=== PATIENT | female | born 1975 | race Caucasian/White ===

== ENCOUNTER 2022-11-02 14:37 | Outpatient (OUT) | payer OTHER, SELFPAY ==
--- NOTE | 2022-11-02 15:05 | XR_ITS ---
The [address] [address] Patient Name: MARK TABARES MRN: [id number] date: 1975 Sex: F Assigned Patient Location: [facility] Current Patient Location: Accession/Order Number: [id number] Exam Date: 11/02/2022 15:15 Report Date: 11/03/2022 07:40 At the request of: CHARMAINE ADKINS Procedure: XR hip RT min 2V PROCEDURE: XR hip RT min 2V HISTORY: Right hip pain M25.551 COMPARISON: None. FINDINGS: BONES:No fracture, acute abnormality, or significant arthropathy. SOFT TISSUES:No visible soft tissue swelling. EFFUSION:None visible. OTHER: Negative. XR/XR hip RT min 2V IMPRESSION: 1. No acute bone abnormality or significant degenerative joint disease. Electronically authenticated by: AVANI GALVAN Date: 11/03/2022 07:40
== END 2022-11-02 14:38 | disposition home or self-care (01) ==
PROVIDERS: PCP Nurse Practitioner Family; Visit Provider Nurse Practitioner Family
DX: M25.551 Pain in right hip (principal)
CPT/HCPCS: 73502

== ENCOUNTER 2022-11-03 08:50 | Outpatient (OUT) | payer OTHER, SELFPAY ==
[2022-11-03 09:04] LABS: Basophils Absolute Auto 0.1 10^3/uL (0.0-0.1); Basophils Percent Auto 0.7 % (0.2-2.0); Eosinophils Absolute Auto 0.2 10^3/uL (0.0-0.7); Eosinophils Percent Auto 1.9 % (0.9-7.0); Hematocrit 43.7 % (36.0-48.0); Hemoglobin 14.9 g/dL (12.0-16.0); Immature Granulocytes Abs Auto 0.05 10^3/uL (0.00-0.03); Immature Granulocytes Pct Auto 0.5 % (0.0-0.5); Lymphocytes Absolute Auto 2.7 10^3/uL (1.2-3.8); Lymphocytes Percent Auto 27.8 % (20.5-60.0); Mean Corpuscular HGB Conc 34.1 g/dL (29.9-35.2); Mean Corpuscular Volume 87.9 fL (81.0-99.0); Mean Platelet Volume 9.2 fL (9.5-13.5); Monocytes Absolute Auto 0.7 10^3/uL (0.3-0.8); Monocytes Percent Auto 6.7 % (1.7-12.0); Neutrophils Percent Auto 62.4 % (43.0-75.0); Platelet Count 249 10^3/uL (150-450); Red Blood Count 4.97 10^6/uL (4.20-5.40); Red Cell Distribution Width 13.7 % (11.0-15.0); White Blood Count 9.7 10^3/uL (4.0-11.0)
[2022-11-03 09:15] LABS: Estimated Average Glucose 120 mg/dL; Glycohemoglobin A1C 5.8 % (4.5-6.2)
[2022-11-03 10:16] LABS: Alanine Aminotransferase 25 U/L (14-59); Albumin Globulin Ratio 0.9; Albumin Level 3.7 g/dL (3.4-5.0); Alkaline Phosphatase 177 U/L (46-116); Anion Gap 9.1; Aspartate Amino Transferase 13 U/L (15-37); BUN Creatinine Ratio 15.7; Bilirubin Total 0.3 mg/dL (0.2-1.0); Calcium 9.4 mg/dL (8.5-10.1); Carbon Dioxide 28.9 mmol/L (21.0-32.0); Chloride 103 mmol/L (98-107); Chol HDL Ratio 2.9; Cholesterol 200 mg/dL (<=200); Estimated GFR (African America >60 (>=60); Estimated GFR (Non-African Ame >60 (>=60); Free T3 2.77 pg/mL (2.18-3.98); Globulin 3.9 g/dL; Glucose 97 mg/dL (74-106); HDL Cholesterol 69 mg/dL (40-60); Sodium 137 mmol/L (136-145); Thyroid Stimulating Hormone 1.803 uIU/mL (0.358-3.740); Total Protein 7.6 g/dL (6.4-8.2); Triglycerides 76 mg/dL (<=150); VLDL CHOLESTEROL 15.2 mg/dL
[2022-11-04 14:10] LABS: Insulin 11.9 uIU/mL (2.6-24.9)
== END 2022-11-03 08:51 | disposition home or self-care (01) ==
LOC: LAB 08:50
PROVIDERS: PCP Nurse Practitioner Family; Visit Provider Nurse Practitioner Family
DX: Z00.00 Encounter for general adult medical examination without abnormal findings (principal)
CPT/HCPCS: 36415; 80053; 80061; 82306; 83036; 83525; 83540; 84436; 84443; 84481; 85025

== ENCOUNTER 2022-11-09 15:51 | Outpatient (RCR) | payer OTHER, SELFPAY | END 2022-12-14 15:38 | disposition home or self-care (01) | LOC: PT 15:51 | PROVIDERS: PCP Nurse Practitioner Family; Visit Provider Nurse Practitioner Family | DX: M25.551 Pain in right hip (principal) | CPT/HCPCS: 97010; 97014; 97110; 97113; 97140; 97162 ==

== ENCOUNTER 2023-03-22 12:49 | Outpatient (OUT) | payer OTHER, SELFPAY ==
--- OUTSIDE RECORDS SUMMARY | 2023-03-22 12:52 | XMS_ITS | CCD ---
Author Name Unknown Address [address] [facility] [address] [place] [address] Organization [facility] Care Team Providers Care Anti Air Warfare Operations Officer Name Role Phone MD Darvin Motley Attending Provider JACE Adkins Primary Care Provider 1( [phone] ANNMARIE ADKINS Primary Care Unavailable LUCILLE, ANNMARIE Consulting Unavailable LUCILLE, ANNMARIE Attending Unavailable LUCILLE, ANNMARIE Admitting Unavailable CHASITY, DR RODRIGUEZ Consulting Unavailable CHASITY, DR RODRIGUEZ Attending Unavailable NEHAY, DR RODRIGUEZ Admitting Unavailable LUCILLE, ANNMARIE Primary Care Unavailable RAVEN HERRON Primary Care Unavailable DEBORAH, MAXIMILIAN Admitting Unavailable CHARLIE LANDEROS Consulting Unavailable DEBORAH, MAXIMILIAN Attending Unavailable MAXIMILIAN CABRERA Consulting Unavailable WEST, DR CHERELLE Warren Admitting Unavailable LUCILLE, ANNMARIE Primary Care Unavailable WEST, DR CHERELLE Warren Consulting Unavailable YADIEL, DR CHERELLE Warren Attending Unavailable MANDY, DR LLOYD Hill Consulting Unavailable LUCILLE, ANNMARIE Primary Care Unavailable LUCILLE, ANNMARIE Attending Unavailable LUCILLE, ANNMARIE Admitting Unavailable WEST, DR CHERELLE Warren Consulting Unavailable ANNMARIE ADKINS Consulting Unavailable WEST, DR CHERELLE Warren Admitting Unavailable LUCILLE, ANNMARIE Primary Care Unavailable WEST, DR CHERELLE Warren Consulting Unavailable WEST, DR CHERELLE Warren Attending Unavailable WEST, DR CHERELLE Warren Admitting Unavailable LUCILLE, ANNMARIE Primary Care Unavailable WEST, DR CHERELLE Warren Consulting Unavailable YADIEL, DR CHERELLE Warren Attending Unavailable LUCILLE, ANNMARIE Primary Care Unavailable WEST, DR CHERELLE Warren Consulting Unavailable WEST, DR CHERELLE Warren Attending Unavailable WEST, DR CHERELLE Warren Admitting Unavailable LUCILLE, ANNMARIE Primary Care Unavailable WEST, DR CHERELLE Warren Attending Unavailable WEST, DR CHERELLE Warren Consulting Unavailable YADIEL, DR CHERELLE Warren Admitting Unavailable LUCILLE, ANNMARIE Attending Unavailable LUCILLE, ANNMARIE Admitting Unavailable LUCILLE, ANNMARIE Primary Care Unavailable ZIDR LLOYD FERGUSON Consulting Unavailable ANNMARIE ADKINS Consulting Unavailable RAVEN HERRON Primary Care Unavailable RAVEN HERRON Attending Unavailable RAVEN HERRON Admitting Unavailable DR CHERELLE COTTO V Consulting Unavailable RAVEN HERRON Consulting Unavailable ANNMARIE ADKINS Primary Care Unavailable ANNMARIE ADKINS Consulting Unavailable ANNMARIE ADKINS Attending Unavailable ANNMARIE ADKINS Admitting Unavailable Darvin Motley Attending Unavailable Annmarie Adkins Primary Care Unavailable Darvin Motley Admitting Unavailable Darvin Motley Attending Unavailable Annmarie Adkins Primary Care Unavailable Darvin Motley Admitting Unavailable Allergies Allergy Classification Reported Allergen(s) Allergy Type Date of Onset Reaction(s) Facility (2 sources) Shellfish; Translations: [shellfish derived] Allergy to substance 12-20-2021 [facility] Medications Current Medications Medication Drug Class(es) Dates Sig (Normalized) Sig (Original) 24 hr buPROPion hydrochloride 150 mg extended release oral tablet (1 source) Aminoketone Start: 12-20-2021 take 150 mg by mouth once daily Bupropion Hcl Active 150 MG PO Daily December 20, 2021 12:00am naproxen 500 mg oral tablet (1 source) Nonsteroidal Anti-inflammatory Drug Start: 12-20-2021 take 500 mg by mouth twice daily Naproxen Active 500 MG PO Twice daily December 20, 2021 12:00am omeprazole 40 mg delayed release oral capsule (1 source) Proton Pump Inhibitor Start: 12-20-2021 take 40 mg by mouth once daily Omeprazole Active 40 MG PO Daily December 20, 2021 12:00am tiZANidine 4 mg oral tablet (1 source) Central alpha-2 Adrenergic Agonist Start: 12-20-2021 take 4 mg by mouth twice daily Tizanidine Active 4 MG PO Twice daily December 20, 2021 12:00am Problems Active Problems Problem Classification Problem Date Documented Da te Episodic/Chronic Abdominal pain (1 source) Unspecified abdominal pain; Translations: [UNSPECIFIED ABDOMINAL PAIN] Onset: 2 Episodic Deficiency and other anemia (1 source) Anemia, unspecified; Translations: [ANEMIA UNSPECIFIED] Onset: 2 Episodic Diabetes mellitus without complication (1 source) Other abnormal glucose; Translations: [OTHER ABNORMAL GLUCOSE] Onset: 2 Episodic Diseases of white blood cells (4 sources) Elevated white blood cell count, unspecified; Translations: [ELEVATED WHITE BLOOD CELL COUNT UNS] Onset: 2 Chronic Esophageal disorders (1 source) Esophageal disorders; Translations: [Gastro-esophageal reflux disease without esophagitis] Onset: 2 Other connective tissue disease (4 sources) Other specified soft tissue disorders; Translations: [OTHER SPEC SOFT TISSUE DISORDERS] Onset: 2 Episodic Other gastrointestinal disorders (5 sources) Dysphagia, unspecified; Translations: [DYSPHAGIA UNSPECIFIED] Onset: 2 Episodic Phlebitis; thrombophlebitis and thromboembolism (8 sources) Phlebitis and thrombophlebitis of superficial vessels of right lower extremity; Translations: [Phlebitis and thrombophlebitis of superficial vessels of left lower extremity] Onset: 2 Episodic Residual codes; unclassified (3 sources) Localized edema; Translations: [LOCALIZED EDEMA] Onset: 2 Episodic Unclassified (3 sources) COUGH, UNSPECIFIED; Translations: [COUGH, UNSPECIFIED] Onset: 2 Unclassified (1 source) CONTACT W/AND (SUSP) EXPOS COVID-19; Translations: [CONTACT W/AND (SUSP) EXPOS COVID-19] Onset: 1 Unclassified (1 source) Encounter for preprocedural laboratory examination; Translations: [Encounter for preprocedural laboratory examination] Onset: 2 Varicose veins of lower extremity (5 sources) Varicose veins of bilateral lower extremities with pain; Translations: [VARICOSE VNS KAMRAN LOW EXTREM W/PAIN] Onset: 2 Episodic Past or Other Problems Problem Classification Problem Date Documented Da te Episodic/Chronic Chronic obstructive pulmonary disease and bronchiectasis (1 source) Bronchitis, not specified as acute or chronic; Translations: [BRONCHITIS NOT SPEC ACUTE/CHRON] Onset: 02-24-2021 Episodic Other upper respiratory infections (1 source) Acute laryngitis; Translations: [ACUTE LARYNGITIS] Onset: 02-24-2021 Episodic Unclassified (1 source) COUGH, UNSPECIFIED; Translations: [COUGH, UNSPECIFIED] Onset: 03-09-2021 Results Test Name Value Interpretation Reference Range Facility COVID-19 [facility] [place] 12-19-2021 SARS-CoV-2 (COVID-19) RNA VITO+probe Ql (Unsp spec) Negative Normal Negative [facility] Comment on above: Order Comment: Healt hcare Worker?: N Result Comment: Testing for SARS-CoV-2 by RT-PCR This test was developed and its performance characteristics determined by [employer] and validated at the [facility]. This test has not been FDA cleared or approved. This test has been authorized by FDA under an Emergency Use Authorization (EUA). This test has been validated in accordance with the FDA's Guidance Document (Policy for Diagnostics Testing in Laboratories Certified to Perform High Complexity Testing under CLIA prior to Emergency Use Authorization for Coronavirus Disease-2019 during the Public Health Emergency) issued on May 29, 2019. This test is only authorized for the duration of time the declaration that circumstances exist justifying the authorization of the emergency use of in vitro diagnostic tests for detection of SARS-CoV-2 virus and/or diagnosis of COVID-19 infection under section 564(b)(1) of the Act, 21 U.S.C. 360bbb-3(b)(1), unless the authorization is terminated or revoked sooner. PERFORMED BY: [place] [address] PATHOLOGIST MANAGER MEDICAL AFFAIRS ZACH LAM M.D. Performed By: #### C OVID 19 [facility] [place] #### [address] COVID-19 Positive/NegativeOr dered By: Darvin Motley on 12-19-2021 SARS-CoV-2 (COVID-19) N gene VITO+probe Ql (Resp) Negative Negative [facility] Comment on above: Testing for SARS-CoV -2 by RT-PCRThis test was developed and its performance characteristics determined by [employer] and validated at the [facility]. This test has not been FDA cleared or approved. This test has been authorized by FDA under an Emergency Use Authorization (EUA). This test has been validated in accordance with the FDA's Guidance Document (Policy for Diagnostics Testing in Laboratories Certified to Perform High Complexity Testing under CLIA prior to Emergency Use Authorization for Coronavirus Disease-2019 during the Public Health Emergency) issued on May 29, 2019. This test is only authorized for the duration of time the declaration that circumstances exist justifying the authorization of the emergency use of in vitro diagnostic tests for detection of SARS-CoV-2 virus and/or diagnosis of COVID-19 infection under section 564(b)(1) of the Act, 21 U.S.C. 360bbb-3(b)(1), unless the authorization is terminated or revoked sooner. VC CONSULT FOLLOWUPon 2021 VC CONSULT FOLLOWUP Patient: KENYON TABARES Exam Date: 12/09/2021 : 1975 Gender:F Ordering : DR CHERELLE COTTO M.D. Admission #: [id number] Family : Order #: [id number] CLICK HERE TO VIEW EXAM RADIOLOGY REPORT PROCEDURE: VEIN CENTER CONSULTATION FOLLOWUP VEIN CENTER - OFFICE VISIT FOLLOW UP COMPARISON: VC CONSULT FOLLOWUP, 11/25/2021. VC CONSULT FOLLOWUP, 11/10/2021. PROGRESS NOTES: The patient reports mild discomfort following intravenous laser ablation of the right great saphenous vein. The patient did not require oral analgesics. The patient did wear her compression stocking which resulted in a rash along the medial lower leg measuring 1 cm in craniocaudal dimension. The patient has followed our recommendations to walk 20-30 minutes once or twice per day since the procedure. The patient reports significant improvement in her initial presenting symptoms. Physical exam demonstrates multiple areas of bruising along the medial right thyroid likely related to tumescence injection. Thrombosed great saphenous vein can be partially palpated. No areas of erythema or warmth to suggest cellulitis or thrombophlebitis. No active ulceration Review of the ultrasound performed the same day demonstrates occlusive thrombus extending throughout the treated right great saphenous vein. No deep vein thrombus. Heat induced thrombus is 2 cm from the saphenofemoral junction. No residual varicose veins could be observed by ultrasound, spontaneous closure following intravenous laser ablation of the great saphenous veins. No further treatments are needed at this time.. IMPRESSION: 1. Successful ablation of the right great saphenous vein 2. No significant incompetent varicose veins 3. Scattered reticular and spider veins, the patients insurance did not approve injection sclerotherapy, the patient declined self pay PLAN: No further treatments required. Follow-up as needed Nurse notes, history and physical were reviewed and confirmed, see attached forms. The nurse was present throughout the physical exam and consultation Dictated by: Cherelle Cotto MD on 12/09/2021 at 08:21 Approved by: Cherelle Cotto MD on 12/09/2021 at 08:31 Normal [facility] VC EXT VENOUS RT LIMITEDon 1 VC EXT VENOUS RT LIMITED Patient: RULA TABARES Exam Date: 12/09/2021 : 1975 Gender:F Ordering : DR CHERELLE COTTO M.D. Admission #: [id number] Family : Order #: [id number] CLICK HERE TO VIEW EXAM RADIOLOGY REPORT PROCEDURE: VEIN CENTER EXTREMITY VENOUS RIGHT LIMITED COMPARISON: None. INDICATIONS: Phlebitis of superficial veins of lower extremity I80.01 TECHNIQUE: Lower extremity angel scale and Duplex Doppler evaluation of the deep venous system from the inguinal ligament through the calf veins. FINDINGS: REGION: Right lower extremity. THROMBI: Negative for DVT. Heat induced thrombus visualized 2.0cm from the SFJ. The heat induced thrombus extends from groin to proximal calf and is patent at mid calf below the area of insertion. COMPRESSIBILITY: Non-compressible segments. FLOW: Areas of no flow. *Exam performed in accordance with AIUM practice guidelines- Peripheral venous ultrasound, May 22, 2009. CONCLUSION: Post ablation occlusion of the left great saphenous vein with heat induced thrombus 2 cm from the saphenofemoral junction Dictated by: Cherelle Cotto MD on 12/09/2021 at 08:14 Approved by: Cherelle Cotto MD on 12/09/2021 at 08:15 Normal [facility] VC ENDOVENOUS ABL 1ST V RTon 12-05-2021 VC ENDOVENOUS ABL 1ST V RT Patient: RULA TABARES Exam Date: 12/05/2021 : 1975 Gender:F Ordering : DR CHERELLE COTTO M.D. Admission #: [id number] Family : Order #: [id number] CLICK HERE TO VIEW EXAM RADIOLOGY REPORT PROCEDURE: VEIN CENTER ENDOVENOUS ABLATION FIRST VEIN RIGHT GREAT SAPHENOUS VEIN COMPARISON: None. INDICATIONS: Pain co-occurrent and due to varicose veins of bilateral legs I83.813 OPERATIVE REPORT: The risks and benefits of the procedure had been previously discussed, and were rediscussed at length. Informed written consent was obtained by and Manan vieira. Time out procedure was performed. The right lower extremity was prepared and draped in the usual sterile fashion to allow knee flexion in the sterile field. Duplex ultrasound probe was draped in a sterile cover, sterile transmission gel was used. Venous mapping was performed with the areas of dilation and large tributaries marked. The total length was 37 cm from the entry mid calf to 3 cm below the saphenofemoral junction. The diameter of the greater saphenous vein ranged from 4-9 mm. A 30 gauge needle and 1% buffered lidocaine was used to anesthetize the entry site. A 4 mm incision was made with a scalpel and the saphenous vein was entered percutaneously under direct ultrasound guidance with a micropuncture set, a single stick was successful in gaining access. A micro-guide wire was inserted and the needle removed. A micro-set including a dilator was inserted over the microwire and the needle and dilator were removed. A 0.018 guide wire was inserted through the micro-set and threaded through the saphenous vein to the saphenofemoral junction. The dilator was removed and an introducer sheath was inserted over the wire until the end of the sheath entered the saphenofemoral junction. The dilator and wire were removed and the 600 micron fiber was introduced and placed and positioned so that it extended beyond the sheath and was 3 cm peripheral to the saphenofemoral femoral junction. Final position of the fiber was determined by ultrasound guidance and duplex imaging. Tumescent anesthetic was delivered by ultrasound guidance. 200 cc of fluid was delivered along the entire course of the saphenous vein. The solution consisted of 500 cc of normal saline with 20mL of 1% lidocaine and 10 mL of sodium bicarbonate. A final positioning check was made. The energy source was turned on by means of the foot pedal and the fiber and sheath were withdrawn. The total number of Joules delivered was 1754. The laser was active for 219 seconds under continuous pulse, average laser use of 8 J. Laser start time 8:37 a.m. December 05, 2021. Laser stop time 8:41 a.m. December 05, 2021 A duplex ultrasound revealed compressibility and flow at the saphenofemoral junction immediately after the procedure. Hemostasis at the access site was achieved. The skin incision of the saphenous vein was closed with a 4 x 4. A compression stocking was applied. Postop instructions were given. A follow up appointment was recommended and scheduled. The patient tolerated the procedure well and was discharged in good condition. CONCLUSION: 1. Technically successful endovenous laser ablation of the right great saphenous vein. Dictated by: Cherelle Cotto MD on 12/05/2021 at 08:44 Approved by: Cherelle Cotto MD on 12/05/2021 at 08:45 Normal [facility] VC CONSULT FOLLOWUPon 2021 VC CONSULT FOLLOWUP Patient: KENYON TABARES Exam Date: 11/25/2021 : 1975 Gender:F Ordering : DR CHERELLE COTTO M.D. Admission #: [id number] Family : Order #: [id number] CLICK HERE TO VIEW EXAM RADIOLOGY REPORT PROCEDURE: VEIN CENTER CONSULTATION FOLLOWUP VEIN CENTER - OFFICE VISIT FOLLOW UP COMPARISON: VC CONSULT FOLLOWUP, 11/10/2021. PROGRESS NOTES: The patient returns today for micro foam chemical ablation. Ultrasound of the left leg demonstrates occlusion of the treated great saphenous vein. There has been marked reduction in size of the distal untreated left great saphenous vein as well as multiple branch saphenous tributaries now measuring only 2-3 mm in size with no significant reflux. No incompetent machine packaging technician veins were identified. Several tributaries appear to have spontaneously thrombosed. In light of this change we did not proceed with the procedure. The patient now reports significant improvement in her initial presenting symptoms following intravenous laser ablation and would like to proceed with treatment of the right leg. Physical exam demonstrates no areas of erythema or warmth. No evidence of cellulitis or thrombophlebitis. No active ulceration. No bruising. No varicose veins are observed. IMPRESSION: 1. Spontaneous thrombosis of several great saphenous vein tributaries following intravenous laser ablation. No significant incompetent varicose veins are identified for treatment on the left leg PLAN: Endovenous laser ablation right great saphenous vein Nurse notes, history and physical were reviewed and confirmed, see attached forms. The nurse was present throughout the physical exam and consultation Dictated by: Cherelle Cotto MD on 11/25/2021 at 10:40 Approved by: Cherelle Cotto MD on 11/25/2021 at 10:43 Normal [facility] ECHOCARDIO M/2D COMPLETEon 0 11-14-2021 ECHOCARDIO M/2D COMPLETE Patient: RULA TABARES Exam Date: 11/14/2021 : 1975 Gender:F Ordering : ANNMARIE ADKINS [facility] Admission #: [id number] Family : Order #: [id number] CLICK HERE TO VIEW EXAM ECHOCARDIOGRAM REPORT PROCEDURE: CARDIO PULMONARY ECHOCARDIO M/2D COMP INDICATIONS: Lower extremity edema COMPARISON: None. DESCRIPTION: COMPLETE ECHOCARDIOGRAM Real-time transthoracic echocardiography with 2D, M-mode, spectral and color flow Doppler performed. QUALITY: Technical quality was good. LEFT VENTRICLE: Normal chamber size. Mild concentric left ventricular hypertrophy. LV EF: Global left ventricular systolic function is normal; visually estimated ejection fraction is 55%. No significant wall motion abnormality seen. DIASTOLIC: Diastolic function is indeterminate. ATRIAL SEPTUM: Inadequately seen. LEFT ATRIUM: Mild dilatation. RIGHT ATRIUM: Mild dilatation. RIGHT VENTRICLE: Normal chamber size. Normal right ventricular systolic function. TRICUSPID VALVE: Normal mobility and thickness. No stenosis with trivial regurgitation. Unable to assess right-sided pressures due to lack of measurable tricuspid regurgitation. MITRAL VALVE: Normal mobility and thickness. No mitral valve prolapse. No evidence of mitral valve stenosis. There is no mitral annular calcification. Trivial mitral regurgitation. AORTIC VALVE: Normal trileaflet appearance. No visible sclerosis. Normal leaflet mobility. No evidence of aortic valve stenosis. No aortic regurgitation. AORTIC ROOT: Normal diameter and appearance. PULMONIC VALVE: Normal thickness and mobility. No stenosis. No regurgitation. PERICARDIUM: Anterior free space; trivial effusion versus fat pad. IVC: Collapses with inspirations. Normal size. CONCLUSION: Global left ventricular systolic function is normal; visually estimated ejection fraction is 55%. No significant wall motion abnormalities. Mild left ventricular hypertrophy. Diastolic function is indeterminate. Mild biatrial enlargement. Right ventricle is normal in size and systolic function. No significant valvular abnormalities. Anterior free space; trivial effusion versus fat pad. Adult Echocardiography Procedure Report Left Ventricle LVEDD (3.7 - 5.6 cm): 4.63 cm LVESD (2.2 - 4.0 cm): 3.42 cm LVIVS thickness (0.6 - 1.2 cm): 1.11 cm LVPW thickness (0.5 - 1.0 cm): 1.26 cm e': 0.12 m/s E - e': 7.02 LVOT Max Gradient: 1.93 mm[Hg], 2.39 mm[Hg] Peak Velocity (LVOT): 0.69 m/s, 0.77 m/s Mean Velocity (LVOT): 0.49 m/s, 0.51 m/s LVOT Diameter 2.42 cm Left Atrium LA Volume Index (2D A2C): 39.88 ml, 39.88 ml Left Atrium Systolic Dimension: 3.64 cm Mitral Valve MV E to A Ratio: 0.93 Mitral Valve A-Wave Peak Velocity: 0.91 m/s Mitral Valve E-Wave Peak Velocity: 0.85 m/s Right Ventricle RV Internal Diastolic Dimension: 3.28 cm Aorta AO Root Diam: 3.43 cm Ascending Ao Diam: 2.73 cm Aortic Valve AoV Area (Peak Hung): 3.33 cm2, 3.15 cm2 Peak Velocity(Antegrade Flow): 1.01 m/s Peak Gradient(Antegrade Flow): 4.12 mm[Hg] Tricuspid Valve Pulmonic Valve Mean Gradient: 1.59 mm[Hg] Mean Velocity: 0.59 m/s Peak Velocity: 0.84 m/s, 0.84 m/s Peak Gradient: 2.85 mm[Hg], 2.81 mm[Hg] Right Atrium Dictated by: Bhupendra Castro M.D. on 11/15/2021 at 16:45 Approved by: Bhupendra Castro M.D. on 11/15/2021 at 16:50 Normal [facility] VC CONSULT FOLLOWUPon 2021 VC CONSULT FOLLOWUP Patient: KENYON TABARES Exam Date: 11/10/2021 : 1975 Gender:F Ordering : DR CHERELLE COTTO M.D. Admission #: [id number] Family : Order #: [id number] CLICK HERE TO VIEW EXAM RADIOLOGY REPORT PROCEDURE: VEIN CENTER CONSULTATION FOLLOWUP VEIN CENTER - OFFICE VISIT FOLLOW UP COMPARISON: None. PROGRESS NOTES: The patient reports moderate pain of the left leg following intravenous laser ablation of the left great saphenous vein. The patient did require over the counter oral analgesics, ibuprofen. The patient did wear her compression stocking. The pain has significantly improved. The patient has followed our recommendations to walk 20-30 minutes once or twice per day since the procedure. Physical exam demonstrates an 8 cm area of bruising in the left mid thigh related to tumescence injection. No areas of erythema or warmth to suggest cellulitis or thrombophlebitis. No active ulceration. Review of the ultrasound performed the same day demonstrates occlusive thrombus extending throughout the treated left great saphenous vein with heat induced thrombus 2.3 cm from the saphenofemoral junction. No deep vein thrombus The patient expressed a desire to proceed with treatment of left leg varicose veins with micro foam chemical ablation. IMPRESSION: 1. Successful ablation of the left great saphenous vein 2. Persistent incompetent left leg varicose veins PLAN: Micro foam chemical ablation left leg Nurse notes, history and physical were reviewed and confirmed, see attached forms. The nurse was present throughout the physical exam and consultation Dictated by: Cherelle Cotto MD on 11/10/2021 at 10:55 Approved by: Cherelle Cotto MD on 11/10/2021 at 10:57 Normal [facility] VC EXT VENOUS LT LIMITEDon 0 11-10-2021 VC EXT VENOUS LT LIMITED Patient: RULA TABARES Exam Date: 11/10/2021 : 1975 Gender:F Ordering : DR CHERELLE COTTO M.D. Admission #: [id number] Family : Order #: [id number] CLICK HERE TO VIEW EXAM RADIOLOGY REPORT PROCEDURE: VEIN CENTER EXTREMITY VENOUS LEFT LIMITED COMPARISON: None. INDICATIONS: Phlebitis and thrombophlebitis of superficial veins of left lower extremity I80.02 TECHNIQUE: Lower extremity angel scale and Duplex Doppler evaluation of the deep venous system from the inguinal ligament through the calf veins. FINDINGS: REGION: Left lower extremity. THROMBI: Negative for DVT. Heat induced thrombus arising 2.3 cm from the SFJ. The heat induced thrombus extends from groin to proximal calf and is patent again at mid calf below the area of insertion COMPRESSIBILITY: Noncompressibility corresponding to thrombus FLOW: Absent flow corresponding to thrombus *Exam performed in accordance with AIUM practice guidelines- Peripheral venous ultrasound, May 22, 2009. CONCLUSION: Post ablation occlusion of the right great saphenous vein with heat induced thrombus 2.3 cm from the saphenofemoral junction Dictated by: Cherelle Cotto MD on 11/10/2021 at 10:51 Approved by: Cherelle Cotto MD on 11/10/2021 at 10:52 Normal [facility] XR MODIFIED BARIUM SWALLOWon 11-08-2021 XR MODIFIED BARIUM SWALLOW EXAMINATION: XR MODIFIED BARIUM SWALLOW HISTORY: Dysphagia ; painful swallowing, feels like things getting stuck at level of lower neck which becomes worse as the day progresses COMPARISON: No relevant comparison available. TECHNIQUE: A swallowing evaluation was performed with fluoroscopy in the usual manner. Standard level fluoroscopic mode of operation utilized. FINDINGS: ORAL PHASE: Normal deglutition. PHARYNGEAL PHASE: Normal swallowing. ASPIRATION: None. STRUCTURE: Normal. No visible obstruction, stricture, or dilatation. OTHER: Negative. IMPRESSION: 1. Normal modified barium swallowing study. 2. Consider fluoroscopic esophagram and possibly upper GI study for evaluation of gastric reflux and esophageal peristalsis and/or stricture. Electronically authenticated by: LLOYD WILLIS Date: 2021-11-08 11:46 Normal [facility] VC ENDOVENOUS ABL 1ST V LTon 11-07-2021 VC ENDOVENOUS ABL 1ST V LT Patient: RULA TABARES Exam Date: 11/07/2021 : 1975 Gender:F Ordering : DR CHERELLE COTTO M.D. Admission #: [id number] Family : Order #: [id number] CLICK HERE TO VIEW EXAM RADIOLOGY REPORT PROCEDURE: VEIN CENTER ENDOVENOUS ABLATION FIRST VEIN LEFT COMPARISON: None. INDICATIONS: Pain co-occurrent and due to varicose veins of bilateral legs I83.813 OPERATIVE REPORT: The risks and benefits of the procedure had been previously discussed, and were rediscussed at length. Informed written consent was obtained by and Manan Orellana assisted. Time out procedure was performed. The left lower extremity was prepared and draped in the usual sterile fashion to allow knee flexion in the sterile field. Duplex ultrasound probe was draped in a sterile cover, sterile transmission gel was used. Venous mapping was performed with the areas of dilation and large tributaries marked. The total length was 39 cm from the entry 10 cm below the knee to 3 cm below the saphenofemoral junction. The diameter of the greater saphenous vein ranged from 9 mm. A 30 gauge needle and 1% buffered lidocaine was used to anesthetize the entry site. A 4 mm incision was made with a scalpel and the saphenous vein was entered percutaneously under direct ultrasound guidance with a micropuncture set, a single stick was successful in gaining access. A micro-guide wire was inserted and the needle removed. A micro-set including a dilator was inserted over the microwire and the needle and dilator were removed. A 0.018 guide wire was inserted through the micro-set and threaded through the saphenous vein to the saphenofemoral junction. The dilator was removed and an introducer sheath was inserted over the wire until the end of the sheath entered the saphenofemoral junction. The dilator and wire were removed and the 600 micron fiber was introduced and placed and positioned so that it extended beyond the sheath and was 3 cm peripheral to the saphenofemoral femoral junction. Final position of the fiber was determined by ultrasound guidance and duplex imaging. Tumescent anesthetic was delivered by ultrasound guidance. Two hundred twenty-five cc of fluid was delivered along the entire course of the saphenous vein. The solution consisted of 500 cc of normal saline with 20mL of 1% lidocaine and 10 mL of sodium bicarbonate. A final positioning check was made. The energy source was turned on by means of the foot pedal and the fiber and sheath were withdrawn. The total number of Joules delivered was 2068. The laser was active for 259 seconds under continuous pulse, average laser use of 8 J. Laser start time 9:25 a.m. November 07, 2021. Laser stop time 9:29 a.m. November 07, 2021. A duplex ultrasound revealed compressibility and flow at the saphenofemoral junction immediately after the procedure. Hemostasis at the access site was achieved. The skin incision of the saphenous vein was closed with a 4 x 4. A compression stocking was applied. Postop instructions were given. A follow up appointment was recommended and scheduled. The patient tolerated the procedure well and was discharged in good condition. CONCLUSION: 1. Technically successful endovenous laser ablation of the left great saphenous vein. Dictated by: Lloyd Willis M.D. on 11/07/2021 at 09:32 Approved by: Lloyd Willis M.D. on 11/07/2021 at 09:35 [facility] AUTO DIFFon 10-05-2021 BASO # 0.1 103/ul Normal 0.0-0.1 [facility] Comment on above: Performed By: #### C BC ####[facility] [address] [place] [address]Dr. Jase Stinson Basophils/100 WBC (Bld) 0.9 % Normal 0.2-2.0 [facility] Comment on above: Performed By: #### C BC ####[facility] [address] [place] [address]Dr. Jase Milad EO # 0.2 103/ul Normal 0.0-0.7 [facility] Comment on above: Performed By: #### C BC ####[facility] [address] [place], [place] [address]Dr. Jase Stinson Eosinophils/100 WBC (Bld) 1.9 % Normal 0.9-7.0 [facility] Comment on above: Performed By: #### C BC ####[facility] [address] [place], [place] [address]Dr. Jase Stinson Erythrocyte distribution width (RBC) [Ratio] 14.6 % Normal 11.0-15.0 [facility] Comment on above: Performed By: #### C BC ####[facility] [address] [place], [place] [address]Dr. Jase Stinson Hematocrit (Bld) [Volume fraction] 46.3 % Normal 36.0-48.0 [facility] Comment on above: Performed By: #### C BC ####[facility] [address] [place], [place] [address]Dr. Jase Stinson Hemoglobin (Bld) [Mass/Vol] 15.2 g/dL Normal 12.0-16.0 [facility] Comment on above: Performed By: #### C BC ####[facility] [address] [place], [place] [address]Dr. Jase Stinson IG # 0.06 10e3/ul Critically high 0.00-0.03 [facility] Comment on above: Performed By: #### C BC ####[facility] [address] [place], [place] [address]Dr. Jase Stinson IG % 0.6 % Critically high 0.0-0.5 [facility] Comment on above: Performed By: #### C BC ####[facility] [address] [place] [address]DrPedro Stinson LYMPH # 2.9 103/ul Normal 1.2-3.8 [facility] Comment on above: Performed By: #### C BC ####[facility] [address] [place] [address]DrPedro Stinson Lymphocytes/100 WBC (Bld) 31.1 % Normal 20.5-60.0 [facility] Comment on above: Performed By: #### C BC ####[facility] [address] [place] [address]DrPedro Stinson MANUAL DIFF REQ NO Normal [facility] Comment on above: Performed By: #### C BC ####[facility] [address] [place], [place] [address]DrPedro Marissajose miguel Stinson MCH (RBC) [Entitic mass] 29.9 pg Normal 26.7-34.0 [facility] Comment on above: Performed By: #### C BC ####[facility] [address] [place], [place] [address]DrPedro Jase Milad MCHC (RBC) [Mass/Vol] 32.8 g/dL Normal 29.9-35.2 [facility] Comment on above: Performed By: #### C BC ####[facility] [address] [place], [place] [address]DrPedro Stinson MCV (RBC) [Entitic vol] 91.1 fL Normal 81.0-99.0 [facility] Comment on above: Performed By: #### C BC ####[facility] [address] [place] [address]DrPedro Stinson MONO # 0.6 103/ul Normal 0.3-0.8 [facility] Comment on above: Performed By: #### C BC ####[facility] [address] [place], [place] [address]DrPedro Stinson Monocytes/100 WBC (Bld) 6.9 % Normal 1.7-12.0 [facility] Comment on above: Performed By: #### C BC ####[facility] [address] [place] [id number]. Jase Stinson NEUT # 5.4 103/ul Normal 1.4-6.5 [facility] Comment on above: Performed By: #### C BC ####[facility] [address] [place] [id number]. Jase Stinson Neutrophils/100 WBC (Bld) 58.6 % Normal 43.0-75.0 [facility] Comment on above: Performed By: #### C BC ####[facility] [address] [place] [address]Dr. Jase Stinson Platelet mean volume (Bld) [Entitic vol] 9.1 fL Critically low 9.5-13.5 [facility] Comment on above: Performed By: #### C BC ####[facility] [address] [place] [address]Dr. Jase Stinson PLT 328 103/ul Normal 150-450 [facility] Comment on above: Performed By: #### C BC ####[facility] [address] [place] [id number]. Jase Stinson RBC 5.08 106/ul Normal 4.20-5.40 [facility] Comment on above: Performed By: #### C BC ####[facility] [address] [place] [id number]. Jase Stinson WBC 9.3 103/ul Normal 4.0-11.0 [facility] Comment on above: Performed By: #### C BC ####[facility] [address] [place] [address]Dr. Jase Stinson VC COMP CONSULTATIONon 10-05 VC COMP CONSULTATION Patient: CHAGO TABARES Exam Date: 10/05/2021 : 1975 Gender:F Ordering : ANNMARIE ADKINS [facility] Admission #: [id number] Family : Order #: [id number] CLICK HERE TO VIEW EXAM RADIOLOGY REPORT PROCEDURE: VC VEIN CENTER CONSULTATION VEIN CENTER - OFFICE VISIT INITIAL COMPARISON: None. PROGRESS NOTES: 46-year-old female who presents with a long history of lower extremity pain swelling and varicose veins. Patient says this is significantly increased in the past year with episodic moderate to severe pain along the anterior bilateral lockett, this usually is in the evening or at night. Patient also complains bilateral swelling, left greater right. The patient's symptoms progress through the course of the day and affect her activities of daily living requiring her to stop intermittently to put her legs up. The patient has worn compression stockings for approximately 3 months with partial relief of her symptoms. The patient does take over the counter naproxen sodium for the pain with partial relief. The patient has no difficulty walking for extended periods of time. The patient denies any signs and symptoms to suggest arterial ischemia. The patient has 3 biological children and 2 stepchildren. Ninety grandchildren 2 of which are in her custody. The patient does not drink. The patient has a 30 pack year history of smoking and smokes approximately 1 pack per day. The patient was counseled on smoking cessation at length, particularly as it pertains to her vein health. Past medical history is significant for sinusitis, dizziness, hypertension which is under good control, COPD, migraine headaches and anxiety and depression. No history of deep venous thrombus or pulmonary embolus. See separate history and physical for medication list. No treatment for varicose or spider veins. Nursing notes were reviewed After history and physical exam I discussed at length the pathophysiology of venous hypertension and possible treatments, therapies and strategies available. We discussed at length the importance of elevating the lower extremities above the level of the heart, increased physical activity and compression stocking use. We discussed conservative therapy with bilateral thigh-high compression stockings.. We discussed surgical interventions including ligation and stripping and phlebectomy. We discussed at length intravenous laser ablation and micro foam chemical ablation. The risks and benefits were discussed. The patient's questions were answered. Ultrasound venous reflux study performed the same day was discussed at length with the patient. The report demonstrates moderate bilateral great saphenous vein venous insufficiency with associated dilatation period mild right anterior accessory and left small saphenous vein venous insufficiency. Left leg incompetent varicose veins PHYSICAL EXAM: The right leg demonstrates scattered reticular and spider veins. No significant subcutaneous edema, hemosiderin staining or active ulceration. The left leg demonstrates scattered reticular and spider veins. Mild below knee subcutaneous edema. No hemosiderin staining or active ulceration. Both thighs, legs and feet were symmetrically warm to the touch. Good posterior tibial and dorsalis pedis pulses were present bilaterally. IMPRESSION: 1. Moderate bilateral great saphenous vein , mild right anterior accessory and left small saphenous vein venous insufficiency . 2. Mild left lower extremity varicose veins 3. Mild left lower extremity subcutaneous edema 4. No flow significant arterial disease 5. CEAP: C3, Ep, Asp, Pr PLAN: 1. Endovenous laser ablation left great saphenous vein, if the patient has significant improvement we will consider laser ablation of the right great saphenous vein 2. Micro foam chemical ablation left leg incompetent varicose veins 3. Smoking cessation 4. Continued leg elevation and increased physical activity for symptomatic relief 5. Bilateral thigh-high or knee high 20-30 mm compression stockings as tolerated Nurse notes, history and physical were reviewed and confirmed, see attached forms. The nurse was present throughout the physical exam and consultation Dictated by: Cherelle Cotto MD on 10/05/2021 at 10:46 Approved by: Cherelle Cotto MD on 10/05/2021 at 12:09 Normal [facility] VC VENOUS REFLUX KAMRAN LMTon 0 10-05-2021 VC VENOUS REFLUX KAMRAN LMT Patient: RULA TABARES Exam Date: 10/05/2021 : 1975 Gender:F Ordering : ANNMARIE ADKINS [facility] Admission #: [id number] Family : Order #: [id number] CLICK HERE TO VIEW EXAM RADIOLOGY REPORT PROCEDURE: VEIN CENTER ULTRASOUND VENOUS REFLUX BILATERAL LIMTED COMPARISON: None. INDICATIONS: Localized edema R60.0 TECHNIQUE: Duplex imaging of the lower extremity to assess the deep and superficial venous system for the presence of deep or superficial venous incompetence and to document the location and severity of disease. The study includes evaluation of the great saphenous vein (GSV), anterior accessory saphenous vein (AASV) and small saphenous vein (SSV). Patient scanned in reverse Trendelenburg and standing. FINDINGS: RIGHT LOWER EXTREMITY: Saphenofemoral Junction Reflux: Yes 6.6mm 1.8 sec GSV: Diam (mm) Reflux/ Time (sec) Proximal Thigh 8.1 Yes 4.4 Mid Thigh 5.0 Yes 1.3 Distal Thigh 5.5 Yes 0.2 Prox Calf 3.8 Yes 0.4 Mid Calf 4.8 Yes 2.3 Saphenopopliteal Junction Reflux: 4.4mm Yes 0.2 SSV: Proximal Calf 3.7 Yes 0.2 Mid Calf 3.2 No AASV: Proximal Thigh 3.9 Yes 1.4 Mid Thigh 3.1 Yes 0.4 Distal Thigh Thrombi: No acute or chronic thrombus. Compressibility: Normal. Flow: Deep venous reflux in CFV. Preforator: Mid/medial calf 3.6 mm with 0.6s reflux. Tech Note: Proximal/medial/posteri or calf varicose vein measures 2.2 mm with 0.3s reflux. LEFT LOWER EXTREMITY: Saphenofemoral Junction Reflux: Yes 8.3 mm 1.1 sec GSV: Diam (mm) Reflux/Time (sec) Proximal Thigh 8.8 Yes 1.4 Mid Thigh 5.1 Yes 3.3 Distal Thigh 6.3 Yes 0.4 Prox Calf 5.1 Yes 0.4 Mid Calf 2.9 Yes 2.1 Saphenopopliteal Junction Relux: 5.6 mm Yes 0.5 SSV: Proximal Calf 7.1 Yes 0.7 Mid Calf 4.2 Yes 1.2 AASV: Proximal Thigh 3.7 Yes 0.3 Mid Thigh 3.0 Yes 0.3 Distal Thigh Thrombi: No acute or chronic thrombus. Compressibility: Normal. Flow: Minimal deep venous reflux. Envelope Sealing Machine Operator: Distal/medial lower leg 3.1 mm with 4.3s reflux. Mid/medial calf 3.8 mm with 4.9s reflux. Tech Note: Varicose vein anterior/medial/distal lower leg measures 3.6 mm with 1.1s reflux. Mid/posterior calf varicose vein measures 4.7mm with 1.3s reflux. Medial knee varicosity measures 4.1mm with 0.7s reflux. CONCLUSION: 1. Moderate bilateral great saphenous vein venous insufficiency with associated dilatation 2. Mild venous insufficiency left small saphenous vein 3. Mild venous insufficiency right anterior accessory saphenous vein 4. Bilateral incompetent branch saphenous tributaries/varicose veins Dictated by: Cherelle Cotto MD on 10/05/2021 at 10:03 Approved by: Cherelle Cotto MD on 10/05/2021 at 10:05 Normal [facility] INSULINon 09-23-2021 Insulin 11.0 uIU/mL Normal 2.6-24.9 [facility] Comment on above: Performed By: #### I NSULIN #### [facility] [address] [address] [address] Jase Stinson CBC AUTO DIFFon 09-22-2021 BASO # 0.1 103/ul Normal 0.0-0.1 [facility] Comment on above: Performed By: #### C BC ####[facility] [address] [place] [address]DrPedro Stinson Basophils/100 WBC (Bld) 0.7 % Normal 0.2-2.0 [facility] Comment on above: Performed By: #### C BC ####[facility] [address] [place] [address]DrPedro Stinson EO # 0.2 103/ul Normal 0.0-0.7 [facility] Comment on above: Performed By: #### C BC ####[facility] [address] [place] [address]DrPedro Stinson Eosinophils/100 WBC (Bld) 1.3 % Normal 0.9-7.0 [facility] Comment on above: Performed By: #### C BC ####[facility] [address] [place] [address]DrPedro Stinson Erythrocyte distribution width (RBC) [Ratio] 14.3 % Normal 11.0-15.0 [facility] Comment on above: Performed By: #### C BC ####[facility] [address] [place] [address]DrPedro Stinson Hematocrit (Bld) [Volume fraction] 44.1 % Normal 36.0-48.0 [facility] Comment on above: Performed By: #### C BC ####[facility] [address] [place] [address]DrPedro Stinson Hemoglobin (Bld) [Mass/Vol] 14.5 g/dL Normal 12.0-16.0 [facility] Comment on above: Performed By: #### C BC ####[facility] [address] [place] [id number]. Jase Stinson IG # 0.12 10e3/ul Critically high 0.00-0.03 [facility] Comment on above: Performed By: #### C BC ####[facility] [address] [place] [id number]. Jase Stinson IG % 0.8 % Critically high 0.0-0.5 The [facility] Comment on above: Performed By: #### C BC ####[facility] [address] [place] [address]Dr. Jase Stinson LYMPH # 2.8 103/ul Normal 1.2-3.8 [facility] Comment on above: Performed By: #### C BC ####[facility] [address] [place] [address]Dr. Jase Stinson Lymphocytes/100 WBC (Bld) 18.6 % Critically low 20.5-60.0 [facility] Comment on above: Performed By: #### C BC ####[facility] [address] [place] [address]Dr. Jase Stinson MANUAL DIFF REQ NO Normal [facility] Comment on above: Performed By: #### C BC ####[facility] [address] [place] [address]Dr. Jase Stinson MCH (RBC) [Entitic mass] 29.3 pg Normal 26.7-34.0 [facility] Comment on above: Performed By: #### C BC ####[facility] [address] [place] [address]Dr. Jase Stinson MCHC (RBC) [Mass/Vol] 32.9 g/dL Normal 29.9-35.2 [facility] Comment on above: Performed By: #### C BC ####[facility] [address] [place] [address]Dr. Jase Stinson MCV (RBC) [Entitic vol] 89.1 fL Normal 81.0-99.0 [facility] Comment on above: Performed By: #### C BC ####[facility] [address] [place] [id number]. Jase Stinson MONO # 0.7 103/ul Normal 0.3-0.8 [facility] Comment on above: Performed By: #### C BC ####[facility] [address] [place] [address]Dr. Jase Stinson Monocytes/100 WBC (Bld) 4.3 % Normal 1.7-12.0 [facility] Comment on above: Performed By: #### C BC ####[facility] [address] [place] [address]Dr. Jase Stinson NEUT # 11.3 103/ul Critically high 1.4-6.5 [facility] Comment on above: Performed By: #### C BC ####[facility] [address] [place] [address]Dr. Jase Stinson Neutrophils/100 WBC (Bld) 74.3 % Normal 43.0-75.0 [facility] Comment on above: Performed By: #### C BC ####[facility] [address] [place] [address]Dr. Jase Stinson Platelet mean volume (Bld) [Entitic vol] 9.2 fL Critically low 9.5-13.5 [facility] Comment on above: Performed By: #### C BC ####[facility] [address] [place] [id number]. Jase Stinson PLT 293 103/ul Normal 150-450 [facility] Comment on above: Performed By: #### C BC ####[facility] [address] [place] [address]Dr. Jase Stinson RBC 4.95 106/ul Normal 4.20-5.40 [facility] Comment on above: Performed By: #### C BC ####[facility] [address] [place] [id number]. Jase Stinson WBC 15.2 103/ul Critically high 4.0-11.0 [facility] Comment on above: Performed By: #### C BC ####[facility] [address] [place] [id number]. Jase Stinson CULTURE URINEon 09-22-2021 CULTURE URINE Culture Observations : LIGHT GROWTH OF MIXED GENITAL LINDY. NO POTENTIAL PATHOGENS SEEN. Normal [facility] Comment on above: Performed By: #### U RCX ####[facility] [address] [place] [id number]. Jase Stinson FREE THYROXINE INDEX T7on FTI 2.71 Normal 1.30-4.50 [facility] Comment on above: Performed By: #### T SH, CMP, LIPID, T7 ####[facility] [address] [place] [address]Dr. Jase Stinson T3U 33.0 % Normal 30.0-39.0 [facility] Comment on above: Performed By: #### T SH, CMP, LIPID, T7 ####[facility] [address] [place] [address]DrPedro Stinson T4 [Mass/Vol] 8.20 ug/dL Normal 4.80-13.90 [facility] Comment on above: Performed By: #### T SH, CMP, LIPID, T7 ####[facility] [address] [place] [address]DrPedro Stinson GLYCOHEMOGLOBIN A1Con 2021 ADA RECOMMENDATION SEE BELOW Normal [facility] Comment on above: Result Comment: ADA RECOMMENDED LIMIT 4.0 - 6.0 ADA THERAPEUTIC TARGET < 7.0 ACTION SUGGESTED > 7.0 Performed By: #### A 1C #### [facility] [address] [address] [address] Jase Stinson Glucose [Mass/Vol] 114 mg/dL Normal [facility] Comment on above: Performed By: #### A 1C #### [facility] [address] [address] [address] Jase Stinson HbA1c (Bld) [Mass fraction] 5.6 % Normal 4.5-6.2 [facility] Comment on above: Performed By: #### A 1C #### [facility] [address] [address] [address] Jase Stinson IRONon 09-22-2021 Iron [Mass/Vol] 40.0 ug/dL Critically low 50.0-170.0 The [facility] Comment on above: Performed By: #### I KESHA #### [facility] [address] [address] [address] Jase Stinson LIPID PROFILEon 09-22-2021 CHOL-HDL RATIO NORM SEE BELOW Normal The [facility] Comment on above: Result Comment: 3.3 - 4.4 LOW RISK 4.4 - 7.1 AVERAGE RISK 7.1 - 11.0 MODERATE RISK >11.0 HIGH RISK Performed By: #### T SH, CMP, LIPID, T7 ####[facility] [id number] [address]DrPedro Stinson Cholesterol [Mass/Vol] 157 mg/dL Normal <=200 [facility] Comment on above: Performed By: #### T SH, CMP, LIPID, T7 ####[facility] [id number] [address]Dr. Jase Stinson Cholesterol in HDL [Mass/Vol] 54 mg/dL Normal 40-60 [facility] Comment on above: Performed By: #### T SH, CMP, LIPID, T7 ####[facility] [id number] [address]DrPedro Stinson Cholesterol in LDL [Mass/Vol] 88.2 mg/dL Normal The [facility] Comment on above: Performed By: #### T SH, CMP, LIPID, T7 ####[facility] [id number] [id number]. Jase Stinson Cholesterol.total/Ch olesterol in HDL [Mass ratio] 2.9 {ratio} Normal The [facility] Comment on above: Performed By: #### T SH, CMP, LIPID, T7 ####[facility] [id number] [id number]. Jase Stinson HDL NORMAL > or = 60 mg/dl - LO W CARDIOVASCULAR RISK <40 mg/dl - HIGH CARDIOVASCULAR RISK Normal [facility] Comment on above: Performed By: #### T SH, CMP, LIPID, T7 ####[facility] [id number] [id number] Stinson LDL CALC NORMAL SEE BELOW Normal The [facility] Comment on above: Result Comment: <100 mg/dl OPTIMAL 100 - 129 mg/dl NEAR OR ABOVE OPTIMAL 130 - 159 mg/dl BORDERLINE HIGH 160 - 189 mg/dl HIGH >190 mg/dl VERY HIGH Performed By: #### T SH, CMP, LIPID, T7 ####[facility] [id number] [id number] Stinson Triglyceride [Mass/Vol] 74 mg/dL Normal <=150 [facility] Comment on above: Performed By: #### T SH, CMP, LIPID, T7 ####[facility] [address] [address]DrPedro Stinson VLDL CALC 14.8 mg/dL Normal [facility] Comment on above: Performed By: #### T SH, CMP, LIPID, T7 ####[facility] [address] [address]Dr. Jase Stinson PROF 14(COMP METB)on 022 Albumin [Mass/Vol] 3.5 g/dL Normal 3.4-5.0 [facility] [place] Comment on above: Performed By: #### T SH, CMP, LIPID, T7 #### [facility] [address] [address] [address] Jase Stinson Albumin/Globulin [Mass ratio] 1.0 {ratio} Normal [facility] Comment on above: Performed By: #### T SH, CMP, LIPID, T7 #### [facility] [address] [address] [address] Jase Stinson ALP [Catalytic activity/Vol] 159 U/L Critically high 46-116 The [facility] Comment on above: Performed By: #### T SH, CMP, LIPID, T7 #### [facility] [address] [address] [address] Jase Stinson ALT [Catalytic activity/Vol] 35 U/L Normal 14-59 [facility] Comment on above: Performed By: #### T SH, CMP, LIPID, T7 #### [facility] [address] [address] [address] Jase Stinson Anion gap [Moles/Vol] 11.3 mmol/L Normal [facility] Comment on above: Performed By: #### T SH, CMP, LIPID, T7 #### [facility] [address] [address] [address] Jase Stinson AST [Catalytic activity/Vol] 16 U/L Normal 15-37 [facility] Comment on above: Performed By: #### T SH, CMP, LIPID, T7 #### [facility] [address] [address] [address] Jase Stinson Bilirubin [Mass/Vol] 0.3 mg/dL Normal 0.2-1.0 [facility] Comment on above: Performed By: #### T SH, CMP, LIPID, T7 #### [facility] [address] [address] [address] Jase Stinson Calcium [Mass/Vol] 9.0 mg/dL Normal 8.5-10.1 [facility] [place] Comment on above: Performed By: #### T SH, CMP, LIPID, T7 #### [facility] [address] [address] [address] Jase Stinson Chloride [Moles/Vol] 104 mmol/L Normal 98-107 The [facility] Comment on above: Performed By: #### T SH, CMP, LIPID, T7 #### [facility] [address] [address] [address] Jase Stinson CO2 [Moles/Vol] 28.4 mmol/L Normal 21.0-32.0 [facility] Comment on above: Performed By: #### T SH, CMP, LIPID, T7 #### [facility] [address] [address] [address] Jase Stinson Creatinine [Mass/Vol] 0.77 mg/dL Normal 0.55-1.02 [facility] Comment on above: Performed By: #### T SH, CMP, LIPID, T7 #### [facility] [address] [address] [address] Jase Stinson EGFR-AF CUBAN >60 Normal >=60 [facility] Comment on above: Performed By: #### T SH, CMP, LIPID, T7 #### [facility] [address] [address] [address] Jase Stinson EGFR-NON AF CUBAN >60 Normal >=60 The [facility] Comment on above: Performed By: #### T SH, CMP, LIPID, T7 #### [facility] [address] [address] [address] Jase Stinson Globulin (S) [Mass/Vol] 3.6 g/dL Normal [facility] Comment on above: Performed By: #### T SH, CMP, LIPID, T7 #### [facility] [address] [address] [address] Jase Stinson Glucose [Mass/Vol] 104 mg/dL Normal 74-106 [facility] Comment on above: Performed By: #### T SH, CMP, LIPID, T7 #### [facility] [address] [address] [address] Jase Stinson Potassium [Moles/Vol] 3.7 mmol/L Normal 3.5-5.1 The [facility] Comment on above: Performed By: #### T SH, CMP, LIPID, T7 #### [facility] [address] [place] [address] Dr. Jase Stinson Protein [Mass/Vol] 7.1 g/dL Normal 6.4-8.2 [facility] Comment on above: Performed By: #### T SH, CMP, LIPID, T7 #### [facility] [address] [address] [address] Jase Stinson Sodium [Moles/Vol] 140 mmol/L Normal 136-145 [facility] Comment on above: Performed By: #### T SH, CMP, LIPID, T7 #### [facility] [address] [place] [address] Dr. Jase Stinson Urea nitrogen [Mass/Vol] 7.0 mg/dL Normal 7.0-18.0 [facility] Comment on above: Performed By: #### T SH, CMP, LIPID, T7 #### [facility] [address] [place] [address] Dr. Jase Stinson Urea nitrogen/Creatinine [Mass ratio] 9.1 mg/mg Normal The [facility] Comment on above: Performed By: #### T SH, CMP, LIPID, T7 #### [facility] [address] [address] [address] Jase Stinson TSHon 09-22-2021 TSH 0.775 uIU/mL Normal 0.358-3.740 The [facility] Comment on above: Performed By: #### T SH, CMP, LIPID, T7 ####[facility] [address] [address]Dr. Jaes Stinson UA RANDOM W/MICROSCOPICon BACTERIA NONE SEEN Normal NONE SEEN [facility] Comment on above: Performed By: #### U AMIC #### [facility] [address] [place] [address] Dr. Jase Stinson Bilirubin Ql (U) Negative Normal NEGATIVE The [facility] Comment on above: Performed By: #### U AMIC #### [facility] [address] [place] [address] Dr. Jase Stinson CAST NONE SEEN Normal NONE SEEN [facility] Comment on above: Performed By: #### U AMIC #### [facility] [address] [place] [address] Dr. Jase Stinson Clarity (U) CLEAR Normal CLEAR The [facility] Comment on above: Performed By: #### U AMIC #### [facility] [address] [place] [address] Dr. Jase Stinson Color (U) LT. YELLOW Normal YELLOW The [facility] Comment on above: Performed By: #### U AMIC #### [facility] [address] [place] [address] Dr. Jase Stinson Crystals LM Nom (Urine sed) NONE SEEN Normal NONE SEEN [facility] Comment on above: Performed By: #### U AMIC #### [facility] [address] [place] [address] Dr. Jase Stinson Epithelial cells LM Ql (Urine sed) NONE SEEN Normal NONE SEEN /RARE The [facility] Comment on above: Performed By: #### U AMIC #### [facility] [address] [address] [address] Jase Stinson Glucose Ql (U) Negative Normal NEGATIVE The [facility] Comment on above: Performed By: #### U AMIC #### [facility] [address] [address] [address] Jase Stinson Hemoglobin Ql (U) Negative Normal NEGATIVE The [facility] Comment on above: Performed By: #### U AMIC #### [facility] [address] [address] [address] Jase Stinson Ketones Ql (U) Negative Normal NEGATIVE [facility] Comment on above: Performed By: #### U AMIC #### [facility] [address] [address] [address] Jase Stinson LEUKOCYTES Negative Normal NEGATIVE [facility] Comment on above: Performed By: #### U AMIC #### [facility] [address] [address] [address] Jase Stinson MUCOUS NONE SEEN Normal NONE SEEN [facility] Comment on above: Performed By: #### U AMIC #### [facility] [address] [address] [address] Jase Stinson Nitrite Ql (U) Negative Normal NEGATIVE [facility] Comment on above: Performed By: #### U AMIC #### [facility] [address] [address] [address] Jase Stinson pH (U) 7.0 [pH] Normal 5-9 The [facility] Comment on above: Performed By: #### U AMIC #### [facility] [address] [address] [address] Jase Stinson RBC NONE SEEN Abnormal 0-2 The [facility] Comment on above: Performed By: #### U AMIC #### [facility] [address] [address] [address] Jase Stinson SPEC GRAVITY <=1.005 Abnormal 1.005-<=1.025 [facility] Comment on above: Performed By: #### U AMIC #### [facility] [address] [place] [address] Dr. Jase Stinson UA PROTEIN Negative Normal NEGATIVE/ TRACE The [facility] Comment on above: Performed By: #### U AMIC #### [facility] [address] [place] [address] Dr. Jase Stinson Urobilinogen Qn (U) 0.2 {Sanchez'U}/dL Normal 0.2 - 1. 0 [facility] Comment on above: Performed By: #### U AMIC #### [facility] [address] [place] [address] Dr. Jase Stinson WBC NONE SEEN Normal NONE SEEN The [facility] Comment on above: Performed By: #### U AMIC #### [facility] [address] [place] [address] Dr. Jase Stinson XR CHEST 2 Von 03-09-2021 XR CHEST 2 V EXAMINATION: XR CHES T 2 V HISTORY: Cough COMPARISON: No relevant comparison available. TECHNIQUE: FINDINGS: LUNGS: No significant pulmonary parenchymal abnormalities. VASCULATURE: No increased pulmonary vasculature. PLEURA: No pneumothorax, effusion, or pleural thickening. CARDIAC: No cardiomegaly or cardiac silhouette abnormality. MEDIASTINUM: No visible mass or adenopathy. BONES: No fracture or visible bone lesion. OTHER: Negative. IMPRESSION: No acute disease. Electronically authenticated by: CHERELLE COTTO Date: 2021-03-09 11:45 Normal The [facility] CULTURE THROATon 02-23-2021 CULTURE THROAT Culture Observations : NORMAL RESPIRATORY LINDY. Normal The [facility] Comment on above: Performed By: #### S SCRN, THRTCX #### [facility] [address] [place] [address] Dr. Jase Stinson Covid-19 PCR (CVDTBH)on 01-27 SARS-CoV-2 (COVID-19) RNA VITO+probe Ql (Unsp spec) Not detected Normal NOT DETECTED The [facility] Comment on above: Result Comment: This test is not yet approved or cleared by the [place] FDA. When there are no FDA-approved or cleared tests available, and other criteria are met, FDA can make tests available under an emergency access mechanism called an Emergency Use Authorization (EUA). The EUA for this test is supported by the Shank Breaker of Health and Human Service's (HHS's) declaration that circumstances exist to justify the emergency use of in vitro diagnostics for the detection and/or diagnosis of the virus that causes COVID-19. This EUA will remain in effect (meaning this test can be used) for the duration of the COVID-19 declaration justifying emergency of IVDs, unless it is terminated or revoked by FDA (after which the test may no longer be used). When diagnostic testing is negative, the possibility of a false negative should be considered in the context of a patient's recent exposures and the presence of clinical signs and symptoms consistent with SARS-CoV-2. Performed By: #### C VDTBH ####[facility] [address] [place], [place] [address]UdDr. Jase Stinson STREPT SCREENon 02-23-2021 STREP SCREEN A Negative Normal NEGATIVE The [facility] Comment on above: Performed By: #### S SCRN, THRTCX #### [facility] [address], [place] [address] Dr. Jase Stinson Vital Signs Date Time Vital Sign Value Performing Clinician Faci lity 12-21-2021 09:23-0400 Diastolic blood pressure 80 mm[Hg] FORENSIC ENGINEER-C Annmarie Adkins Work Phone: [facility] 12-21-2021 09:23-0400 Heart rate 80 /min FORENSIC ENGINEER-C Annmarie Adkins Work Phone: [facility] 12-21-2021 09:23-0400 Respiratory rate 16 /min FORENSIC ENGINEER-Ashley Adkins Work Phone: [facility] 12-21-2021 09:23-0400 SaO2% (BldA) [Mass fraction] 98 % FORENSIC ENGINEER-C Annmarie Adkins Work Phone: [facility] 12-21-2021 09:23-0400 Systolic blood pressure 123 mm[Hg] FORENSIC ENGINEER-Ashley Adkins Work Phone: [facility] 12-21-2021 07:31-0400 Body height 167.64 cm FORENSIC ENGINEER-Ashley Adkins Work Phone: [facility] 12-21-2021 07:31-0400 Body temperature 98.1 [degF] FORENSIC ENGINEER-C Annmarie Lucille Work Phone: [facility] 12-21-2021 07:31-0400 Body weight 95.25 kg FORENSIC ENGINEER-C Annmarie Lucille Work Phone: [facility] Encounters Encounter Date Encounter Type Care Provider Facility Start: 12-21-2021 End: 12-21-2021 ambulatory Darvin Motley Facility:[facility] Start: 12-21-2021 End: 12-21-2021 Admission to same day surgery center FORENSIC ENGINEER-C Annmarie Lucille Work Phone: [facility] Start: 12-21-2021 End: 12-21-2021 ambulatory FORENSIC ENGINEER-C Annmarie Cande [address] Work Phone: [facility] Work Phone: Start: 12-19-2021 End: 12-19-2021 ambulatory Darvin Motley Facility:[facility] Start: 12-19-2021 End: 12-19-2021 ambulatory FORENSIC ENGINEER-C Annmarie Cande [place] Work Phone: [facility] Work Phone: Start: 12-19-2021 End: 12-19-2021 Patient encounter procedure FORENSIC ENGINEER-C Annmarie Lucille Work Phone: [facility] Start: 12-09-2021 End: 12-10-2021 ambulatory ANNMARIE ADKINS Facility:[facility] Start: 12-05-2021 End: 12-06-2021 ambulatory ANNMARIE ADKINS Facility:[facility] Start: 11-25-2021 End: 11-26-[address] CHERELLE COTTO Facility:[facility] Start: 11-14-2021 End: 11-15-2021 ambulatory ANNMARIE ADKINS Facility:[facility] Start: 11-10-2021 End: 11-11-[address] CHERELLE COTTO Facility:[facility] Start: 11-08-2021 End: 11-09-2021 ambulatory ANNMARIE ADKINS Facility:[facility] Start: 11-07-2021 End: 11-08-[address] CHERELLE COTTO Facility:[facility] Start: 10-05-2021 End: 10-06-[address] MICHAEL GASPAR Facility:[facility] Start: 10-05-2021 End: 10-06-2021 ambulatory ANNMARIE ADKINS Facility:[facility] Start: 09-22-2021 End: 09-23-2021 ambulatory ANNMARIE ADKINS Facility:[facility] Start: 03-09-2021 End: 03-10-2021 ambulatory RAVEN HERRON Facility:[facility] Start: 02-23-2021 End: 02-23-2021 ambulatory RAVEN HERRON Facility:[facility] Procedures Date Procedure Procedure Detail Performing Clinician Start: 12-21-2021 Esophagogastroduodenoscopy FORENSIC ENGINEER-Ashley Adkins Work Phone: Plan of Treatment Date Care Activity Detail Author Start: 12-21-2021 [facility] Patient Education Esophageal Dilation [facility] Work Phone: Payers Date Payer Category Payer Self-pay 1975 Unknown [id number] 2.16.84 [id number] 1975 Unknown [id number] 2.16.84 [id number] 1973 Unknown [id number] 2.16.84 [id number] 1973 Unknown [id number] 2.16.84 [id number] 1973 Unknown [id number] 2.16.84 [id number] 1973 Unknown [id number] 2.16.84 [id number] 1973 Unknown [id number] 2.16.84 [id number] 1973 Unknown [id number] 2.16.84 [id number] 1973 Unknown [id number] 2.16.84 [id number] 1973 Unknown [id number] 2.16.84 [id number] 1973 Unknown [id number] 2.16.84 [id number] 1973 Unknown [id number] 2.16.84 [id number] 1961 Medicaid [id number] [id number] Unknown [id number] 2.16.8 [id number] Unknown [id number] 2.16.8 [id number] Social History Date Type Detail Facility Tobacco smoking stat [facility] Unknown if ever smoked [facility] Work Phone: Start: 1975 Sex Assigned At Female F [facility] Start: 12-21-2021 [facility] Goals Date Patient Goal Desired Activity /State Procedure note 12-21-2021 Note Date & Type Note Facility 12-21-2021 Procedure note [facility] Evaluation note Note Date & Type Note Facility Evaluation note No assessment information availa ble [facility] Work Phone: History and physical note Note Date & Type Note Facility History and physical note Note Date/Time December 21, 2021 8:43am [facility] [address] [place] [address] Gastroenterology H&P Signed Patient: Rula Tabares MR#: [id number] : 1975 Acct:[id number] Age/Sex: 46 / F Adm Date: 2 Loc: Room: Type: [facility] Attending Dr: Darvin Motley MD Copies to: MD Annmarie Sparks CNP~ Date of Service: 12/21/2021 HISTORY & PHYSICAL: Patient's history with special attention to the cardiovascular, pulmonary systems and the current problem was reviewed with the patient immediately prior to the procedure. Present medications and doses reviewed in the EMR. Allergies and pertinent laboratory tests were also reviewedat this time in the EMR. The physical examination, as below, was then performed. Indication, assessment and HPI: 46 yo F presents for EGD to evaluate GERD, dysphagia Family history of GI malignancy? No PHYSICAL EXAMINATION Mouth and Pharynx : Moist mucus membranes, normal dentition Cardiac: Regular rate, regular rhythm Pulmonary: Clear to auscultation bilaterally, no wheezing Neurological: Alert and oriented x3, no focal deficits noted Abdomen: Abdomen soft, non-tender REVIEW OF SYSTEMS Constitutional: Denies malaise, fevers Cardiovascular: Denies chest pain, palpitations Respiratory: Denies shortness of breath, wheezing Gastrointestinal: Per HPI Genitourinary: Denies dysuria, polyuria Musculoskeletal: Denies joint swelling, joint stiffness Neurological: Denies numbness, tingling Integumentary: Denies rashes, skin lesions Endocrine: Denies fatigue, weight loss Written informed consent obtained from the patient. Risks (including but not limited to perforation, infection, bloating, bleeding, need for emergent surgeryand loss of life), benefits and alternatives explained and questions answered. The patient verbalized understanding. Based on history patient is an appropriate candidate for the procedure. Darvin Motley MD Documented By: Darvin Motley MD 12/21/21842 Signed By: <Electronically signed by Darvin Motley MD> 12/21/21842 [facility] Work Phone: Hospital Discharge instructions Note Date & Type Note Facility Hospital Discharge instructions Additional Instructions DISCHARGE INSTRUCTIONS FOR UPPER ENDOSCOPY WHAT TO EXPECT: - You may feel full, gassy or cramping after your procedure. In some cases, this may be from a few hours to a day. Walking may help relieve the discomfort. - Your throat may feel sore today from the scope that the doctor passed through your throat to visualize your stomach. Take a throat lozenge or suck on ice to ease the discomfort. - You may notice some streaks of blood in your sputum if the doctor has taken a biopsy. - You should begin to recover from anesthesia within 1 hour of the procedure, however may feel groggy for the next 24 hours. DO's AND DON'Ts: - Call your doctor right away if you have a hard abdomen, severe pain, vomiting or if you cough up large amounts of blood. - Call your doctor if you develop any rashes, hives or difficulty breathing. - If you take 81 mg aspirin for your heart it is safe to resume this medication. - If you take other blood thinner medications your doctor will instruct you when these can safely be resumed. - Do NOT drive for 24 hours. - Do NOT operate machinery such as power tools, [employer] mowers, snow blowers, sewing machines, etc. for 24 hours. - Avoid alcoholic beverages and drugs for allergies, nerves, or sleep. - Do NOT stay alone. Do NOT leave your child unattended. - Do NOT make important personal or business decisions or sign any legal documents. - Eat solid foods and drink liquids in smaller amounts than usual until normal appetite returns. If you should experience an upset stomach, liquids high in sugar content (soda, William-Aid, non-acid juices) are recommended. - Do NOT smoke. - Do take it easy today. You need not stay in bed, but avoid strenuous activities such as jogging or working out. FOLLOW UP & RECOMMENDATIONS: - Follow up with Dr. Motley in 6 months - Continue your omeprazole 40 mg daily, take this 30 min before your first meal of the day - Notify the doctor if you have any problems. - Follow up with PCP. - Office number [phone]. [facility] Work Phone: Chief Complaint and Reason for Visit Chief Complaint GERD, Dysphagia Chief Complaint GERD, Dysphagia GERD, Dysphagia Advance Directives No Advanced Directives Records Found Advance Directive Response Recorded Date/ Time Advance Directives No December 15, 2021 1:53pm Summary Purpose Family History No Family History Records Found Relationship Condition Age at Onset Recorded Date/T shahrzad grandparent Dementia Unknown Hypertension Unknown grandparent Diabetes mellitus Unknown brother Diabetes mellitus Unknown Not Specified Hypertension Unknown father Hypertension Unknown grandparent Hypertension Unknown Additional Source Comments Care Teams (unrecognized sec tion and content) Team Status: Inactive Member Role Status Dates Darvin Motley MD Attending Provider Active GIUSEPPE MorenoC Primary Care Provider Active Team Status: Active Member Role Status Dates Annmarie Adkins , FORENSIC ENGINEER-C Primary Care Provider Active Goals (unrecognized section and content) Goals may be documented in a n alternate section INFORMATION SOURCE (unrecogn ized section and content) DATE CREATED AUTHOR 12/24/2021 [facility] DATE CREATED AUTHOR AUTHOR'S BENJI ATION 12/28/2021 [facility] FOR RECORDS PERTAINING TO PATIENTS WHO ARE OR HAVE BEEN ENROLLED IN A CHEMICAL DEPENDENCY/SUBSTANCEABUSE PROGRAM, SOME INFORMATION MAY BE OMITTED. This clinical summary was aggregated from multiple sources. Caution should be exercised in using it in the provision of clinical care. This summary normalizes information from multiple sources, and as a consequence, information in this document may materially change the coding, format and clinical context of patient data. In addition, data may be omitted in some cases. CLINICAL DECISIONS SHOULD BE BASED ON THE PRIMARY CLINICAL RECORDS. [facility]. provides no warranty or guarantee of the accuracy or completeness of information in this document.
--- NOTE | 2023-03-22 12:53 | MM_ITS ---
Patient Name: MARK TABARES MR#: [id number] : 1975 Exam Date: 03/22/2023 Ordering Doctor: CHARMAINE ADKINS BUS AND RAIL OPERATOR RADIOLOGY REPORT PROCEDURE: MM TOMOSYNTHESIS DIAGNOSTIC BI COMPARISON: MG MAMM KAMRAN SCRN W CAD DIG, 02/16/2016. INDICATIONS: breast pain, right N54.4 Calculator Name NCI Breast Cancer Risk Assessment Tool 5 Year Breast Cancer Risk 0.80% Lifetime Breast Cancer Risk 7.10% Personal Breast Cancer No Personal Ovarian Cancer No Treatments None Family Cancers None LOCATION: [facility] BREAST COMPOSITION: Heterogeneously dense,which may obscure small masses. FINDINGS: DIAGNOSTIC CATEGORY 1--NEGATIVE. NO CHANGE FROM COMPARISON ASSESSMENT. Scattered benign-appearing calcifications are present. RIGHT BREAST: No significant suspicious finding. LEFT BREAST: No significant suspicious finding. RECOMMENDATIONS: ROUTINE MAMMOGRAM AND CLINICAL EVALUATION IN 12 MONTHS. PLEASE NOTE: A NORMAL MAMMOGRAM DOES NOT EXCLUDE THE POSSIBILITY OF BREAST CANCER. A CLINICALLY SUSPICIOUS PALPABLE LUMP SHOULD BE BIOPSIED. Dictated by: Hector Diane MD on 03/22/2023 at 13:17 Approved by: Hector Diane MD on 03/22/2023 at 13:19
== END 2023-03-22 12:50 | disposition home or self-care (01) ==
LOC: MAMMO 12:49
PROVIDERS: PCP Nurse Practitioner Family; Visit Provider Nurse Practitioner Family
DX: N64.4 Mastodynia (principal)
CPT/HCPCS: 77066; G0279

== ENCOUNTER 2024-05-08 08:36 | Outpatient (OUT) | payer OTHER, SELFPAY ==
[2024-05-08 09:02] LABS: Basophils Absolute Auto 0.1 10^3/uL (0.0-0.1); Basophils Percent Auto 0.9 % (0.2-2.0); Eosinophils Absolute Auto 0.3 10^3/uL (0.0-0.7); Eosinophils Percent Auto 4.4 % (0.9-7.0); Hematocrit 43.4 % (36.0-48.0); Hemoglobin 14.1 g/dL (12.0-16.0); Immature Granulocytes Abs Auto 0.03 10^3/uL (0.00-0.03); Immature Granulocytes Pct Auto 0.4 % (0.0-0.5); Lymphocytes Absolute Auto 2.2 10^3/uL (1.2-3.8); Lymphocytes Percent Auto 29.9 % (20.5-60.0); Mean Corpuscular HGB Conc 32.5 g/dL (29.9-35.2); Mean Corpuscular Hemoglobin 29.3 pg (26.7-34.0); Mean Corpuscular Volume 90.2 fL (81.0-99.0); Mean Platelet Volume 8.9 fL (9.5-13.5); Monocytes Absolute Auto 0.4 10^3/uL (0.3-0.8); Monocytes Percent Auto 5.6 % (1.7-12.0); Neutrophils Absolute Auto 4.4 10^3/uL (1.4-6.5); Neutrophils Percent Auto 58.8 % (43.0-75.0); Platelet Count 339 10^3/uL (150-450); Red Blood Count 4.81 10^6/uL (4.20-5.40); White Blood Count 7.5 10^3/uL (4.0-11.0)
[2024-05-08 09:30] LABS: Alanine Aminotransferase 28 U/L (14-59); Albumin Level 3.7 g/dL (3.4-5.0); Alkaline Phosphatase 173 U/L (46-116); Anion Gap 9.9; Aspartate Amino Transferase 17 U/L (15-37); Bilirubin Total 0.3 mg/dL (0.2-1.0); Calcium 9.2 mg/dL (8.5-10.1); Carbon Dioxide 29.4 mmol/L (21.0-32.0); Chloride 104 mmol/L (98-107); Chol HDL Ratio 2.1; Cholesterol 166 mg/dL (<=200); Estimated GFR (African America >60 (>=60 mL/min/1.73m^2); Estimated GFR (Non-African Ame >60 (>=60 mL/min/1.73m^2); Free T3 3.26 pg/mL (2.18-3.98); Globulin 3.6 g/dL; Glucose 100 mg/dL (74-106); HDL Cholesterol 80 mg/dL (40-60); Potassium 4.3 mmol/L (3.5-5.1); Sodium 139 mmol/L (136-145); Thyroid Stimulating Hormone 1.048 uIU/mL (0.358-3.740); Total Protein 7.3 g/dL (6.4-8.2); Triglycerides 41 mg/dL (<=150); VLDL CHOLESTEROL 8.2 mg/dL
[2024-05-08 10:01] LABS: Estimated Average Glucose 117 mg/dL; Glycohemoglobin A1C 5.7 % (4.5-6.2)
[2024-05-09 08:11] LABS: Insulin 16.4 uIU/mL (2.6-24.9)
== END 2024-05-08 08:37 | disposition home or self-care (01) ==
LOC: LAB 08:38
PROVIDERS: PCP Nurse Practitioner Family; Visit Provider Nurse Practitioner Family
DX: Z00.00 Encounter for general adult medical examination without abnormal findings (principal)
CPT/HCPCS: 36415; 80053; 80061; 82306; 83036; 83525; 83540; 84436; 84443; 84481; 85025

== ENCOUNTER 2024-05-14 09:22 | Outpatient (OUT) | payer OTHER, SELFPAY ==
--- NOTE | 2024-05-14 09:25 | US_ITS ---
The [address] [address] Patient Name: MARK TABRAES MRN: [id number] date: 1975 Sex: F Assigned Patient Location: [place] Current Patient Location: [place] Accession/Order Number: [id number] Exam Date: 05/14/2024 11:29 Report Date: 05/14/2024 12:04 At the request of: CHARMAINE ADKINS Procedure: US thyroid Thyroid ultrasound Reason for exam: Wellness examination. Family history of thyroid cancer. Comparison: none Technique: Grayscale and color Doppler images of the thyroid gland were obtained. Findings: The right lobe measures 4.7 x 2.1 x 1.6 cm. The left lobe measures 4.0 x 1.6 x 1.6 cm. The isthmus measures 4.4 mm. No hyperemia seen on color Doppler imaging. A hypoechoic nodule seen involving the mid aspect of the right lobe measuring 9 x 7 x 6 mm. A colloid cyst is seen involving the inferior pole of the right lobe measuring 7 x 6 x 4 mm. The left lobe demonstrates a hypoechoic nodule involving its mid aspect measuring 8 x 6 x 5 mm. An additional hypoechoic nodule seen involving the mid aspect of the left lobe measuring 10 x 5 x 3 mm. No nodules are noted involving the isthmus. US/US thyroid Impression: Multinodular thyroid gland, largest nodule measuring 10 x 5 x 3 mm involving the mid aspect of the left lobe. Repeat ultrasound in one year is suggested. Impression dictated by: Yves Rincon Jr., D.O.05/14/2024 12:04 PM Dictation Location: [place] [id number] Electronically authenticated by: [id number] Y Date: 05/14/2024 12:04
== END 2024-05-14 09:23 | disposition home or self-care (01) ==
LOC: US 09:22
PROVIDERS: PCP Nurse Practitioner Family; Visit Provider Nurse Practitioner Family
DX: Z00.00 Encounter for general adult medical examination without abnormal findings (principal); E04.2 Nontoxic multinodular goiter
CPT/HCPCS: 76536

== ENCOUNTER 2024-05-20 19:20 | Emergency (ER) | payer OTHER, SELFPAY ==
[2024-05-20 19:22] VITALS: BP 158/103; PULSE 99; TEMP 36.8; O2SAT 100; BMI 33.3
--- OUTSIDE RECORDS SUMMARY | 2024-05-20 19:27 | XMS_ITS | CCD ---
Author Organization [facility] Care Team Providers Care Dry Folder Cloth Name Role Phone MD Darvin Motley Attending Provider [phone] JACE Adkins Primary Care Provider ANNMARIE ADKINS Primary Care Unavailable ANNMARIE ADKINS Consulting Unavailable LUCILLE, ANNMARIE Attending Unavailable LUCILLE, ANNMAREI Admitting Unavailable NEHAY, DR RODRIGUEZ Consulting Unavailable NEHAY, DR RODRIGUEZ Attending Unavailable NEHAY, DR RODRIGUEZ Admitting Unavailable LUCILLE, ANNMARIE Primary Care Unavailable RAVEN HERRON Primary Care Unavailable MAXIMILIAN CABRERA Admitting Unavailable CHARLIE LANDEROS Consulting Unavailable MAXIMILIAN CABRERA Attending Unavailable MAXIMILIAN CABRERA Consulting Unavailable YADIEL, DR CHERELLE Warren Admitting Unavailable LUCILLE, ANNMARIE Primary Care Unavailable WEST, DR CHERELLE Warren Consulting Unavailable YADIEL, DR CHERELLE Warren Attending Unavailable MANDY, DR LLOYD Hill Consulting Unavailable LUCILLE, ANNMARIE Primary Care Unavailable LUCILLE, ANNMARIE Attending Unavailable LUCILLE, ANNMARIE Admitting Unavailable WEST, DR CHERELLE Warren Consulting Unavailable LUCILLE, ANNMARIE Consulting Unavailable WEST, DR CHERELLE Warren Admitting Unavailable LUCILLE, ANNMARIE Primary Care Unavailable WEST, DR CHERELLE Warren Consulting Unavailable YADIEL, DR CHERELLE Warren Attending Unavailable WEST, DR CHERELLE Warren Admitting Unavailable LUCILLE, ANNMARIE Primary Care Unavailable WEST, DR CHERELLE Warren Consulting Unavailable YADIEL, DR CHERELLE Warren Attending Unavailable LUCILLE, ANNMARIE Primary Care Unavailable WEST, DR CHERELLE Warren Consulting Unavailable YADIEL, DR CHERELLE Warren Attending Unavailable YADIEL, DR CHERELLE Warren Admitting Unavailable LUCILLE, ANNMARIE Primary Care Unavailable WEST, DR CHERELLE Warren Attending Unavailable WEST, DR CHERELLE Warren Consulting Unavailable YADIEL, DR CHERELLE Warren Admitting Unavailable LUCILLE, ANNMARIE Attending Unavailable LUCILLE, ANNMARIE Admitting Unavailable LUCILLE, ANNMARIE Primary Care Unavailable MANDY, DR LLOYD Hill Consulting Unavailable LUCILLE, ANNMARIE Consulting Unavailable GOPAL RAVEN Jeffries Primary Care Unavailable RAVEN HERRON Attending Unavailable RAVEN HERRON Admitting Unavailable DR CHERELLE COTTO V Consulting Unavailable RAVEN HERRON Consulting Unavailable ANNMARIE ADKINS Primary Care Unavailable ANNMARIE ADKINS Consulting Unavailable ANNMARIE ADKINS Attending Unavailable ANNMARIE ADKINS Admitting Unavailable Darvin Motley Attending Unavailable Annmarie Adkins Primary Care Unavailable Darvin Motley Admitting Unavailable Darvin Motley Attending Unavailable Annmarie Adkins Primary Care Unavailable Darvin Motely Admitting Unavailable Allergies Allergy Classification Reported Allergen(s) Allergy Type Date of Onset Reaction(s) Facility (2 sources) Shellfish; Translations: [shellfish derived] Allergy to substance 12-20-2021 [facility] Medications Current Medications Medication Drug Class(es) [...] Name Value Interpretation Reference Range Facility COVID-19 [facility] 12-19-2021 SARS-CoV-2 (COVID-19) RNA VITO+probe Ql (Unsp spec) Negative Normal Negative [facility] Comment on above: Order Comment: Healt hcare Worker?: N Result Comment: Testing for SARS-CoV-2 by RT-PCR This test was developed and its performance characteristics determined by [employer] ([employer]) and validated at the [facility]. This test has not been FDA cleared [...] is terminated or revoked sooner. PERFORMED BY: [place] [address] PATHOLOGIST BRAKER PASSENGER TRAIN ZACH LAM M.D. Performed By: #### C OVID 19 [facility] #### [address] COVID-19 Positive/NegativeOr dered By: Darvin Motley on 12-19-2021 SARS-CoV-2 (COVID-19) N gene VITO+probe Ql (Resp) Negative Negative [facility] Comment on above: Testing for SARS-CoV -2 by RT-PCRThis test was developed and its performance characteristics determined by [place] [place] [employer] ([place]) and validated at the [facility]. This test has not been FDA cleared [...] : DR CHERELLE COTTO M.D. Admission #: [id number] Family : Order #: [id number] CLICK HERE [...] Cotto MD on 12/09/2021 at 08:[address] [facility] VC EXT VENOUS RT LIMITEDon 1 VC EXT VENOUS RT LIMITED Patient: RULA TABARES Exam Date: 12/09/2021 : 1975 Gender:F Ordering : DR CHERELLE COTTO M.D. Admission #: [id number] Family : Order #: [id number] CLICK HERE TO VIEW EXAM RADIOLOGY REPORT [...] Cotto MD on 12/09/2021 at 08:[address] [facility] VC ENDOVENOUS ABL 1ST V RTon 12-05-2021 VC ENDOVENOUS ABL 1ST V RT Patient: RULA TABARES Exam Date: 12/05/2021 : 1975 Gender:F Ordering : DR CHERELLE COTTO M.D. Admission #: [id number] Family : Order #: [id number] CLICK HERE TO VIEW EXAM RADIOLOGY REPORT [...] Cotto MD on 12/05/2021 at 08:[address] [facility] VC CONSULT FOLLOWUPon 2021 VC CONSULT FOLLOWUP Patient: KENYON TABARES Exam Date: 11/25/2021 : 1975 Gender:F Ordering : DR CHERELLE COTTO M.D. Admission #: [id number] Family : Order #: [id number] CLICK HERE TO VIEW EXAM RADIOLOGY REPORT [...] size with no significant reflux. No incompetent caddy packer veins were identified. Several tributaries appear to [...] Cotto MD on 11/25/2021 at 10:[address] [facility] ECHOCARDIO M/2D COMPLETEon 0 11-14-2021 ECHOCARDIO M/2D COMPLETE Patient: RULA TABARES Exam Date: 11/14/2021 : 1975 Gender:F Ordering : ANNMARIE ADKINS [facility] Admission #: [id number] Family : Order #: [id number] CLICK HERE TO VIEW EXAM ECHOCARDIOGRAM REPORT [...] Castro M.D. on 11/15/2021 at 16:[address] [facility] VC CONSULT FOLLOWUPon 2021 VC CONSULT FOLLOWUP Patient: KENYON TABARES Exam Date: 11/10/2021 : 1975 Gender:F Ordering : DR CHERELLE COTTO M.D. Admission #: [id number] Family : Order #: [id number] CLICK HERE TO VIEW EXAM RADIOLOGY REPORT [...] Cotto MD on 11/10/2021 at 10:[address] [facility] VC EXT VENOUS LT LIMITEDon 0 11-10-2021 VC EXT VENOUS LT LIMITED Patient: RULA TAABRES Exam Date: 11/10/2021 : 1975 Gender:F Ordering : DR CHERELLE COTTO M.D. Admission #: [id number] Family : Order #: [id number] CLICK HERE TO VIEW EXAM RADIOLOGY REPORT [...] Cotto MD on 11/10/2021 at 10:[address] [facility] XR MODIFIED BARIUM SWALLOWon 11-08-2021 [...] by: LLOYD WILLIS Date: 2021-11-08 11:[address] [facility] VC ENDOVENOUS ABL 1ST V LTon 11-07-2021 VC ENDOVENOUS ABL 1ST V LT Patient: RULA TABARES Exam Date: 11/07/2021 : 1975 Gender:F Ordering : DR CHERELLE COTTO M.D. Admission #: [id number] Family : Order #: [id number] CLICK HERE TO VIEW EXAM RADIOLOGY REPORT PROCEDURE: VEIN CENTER ENDOVENOUS ABLATION FIRST VEIN LEFT COMPARISON: None. INDICATIONS: Pain co-occurrent and due to varicose veins of bilateral legs I83.813 OPERATIVE REPORT: The risks and benefits of the procedure had been previously discussed, and were rediscussed at length. Informed written consent was obtained by ia and Manan Orellana assisted. Time out procedure [...] Lloyd Willis M.D. on 11/07/2021 at 09:35 Normal [facility] CBC AUTO DIFFon 10-05-2021 BASO # 0.1 103/ul Normal 0.0-0.1 [facility] Comment on above: Performed By: #### C BC ####[facility] [address] [place] [id number]. Jase Stinson Basophils/100 WBC (Bld) 0.9 % Normal 0.2-2.0 [facility] Comment on above: Performed By: #### C BC ####[facility] [address] [place] [address]Dr. Jase Stinson EO # 0.2 103/ul Normal 0.0-0.7 [facility] Comment on above: Performed By: #### C BC ####[facility] T[address] [place], [place] [address]Dr. Jase Stinson Eosinophils/100 WBC (Bld) 1.9 % Normal 0.9-7.0 [facility] Comment on above: Performed By: #### C BC ####[facility] [address] [place], [place] [address]Dr. Jase Stinson Erythrocyte distribution width (RBC) [Ratio] 14.6 % Normal 11.0-15.0 [facility] Comment on above: Performed By: #### C BC ####[facility] [address] [place], [place] [address]Dr. Jase Stinson Hematocrit (Bld) [Volume fraction] 46.3 % Normal 36.0-48.0 [facility] Comment on above: Performed By: #### C BC ####[facility] [address] [place], [place] [address]Dr. Jase Stinson Hemoglobin (Bld) [Mass/Vol] 15.2 g/dL Normal 12.0-16.0 [facility] Comment on above: Performed By: #### C BC ####[facility] [address] [place], [place] [address]Dr. Jase Stinson IG # 0.06 10e3/ul Critically high 0.00-0.03 [facility] Comment on above: Performed By: #### C BC ####[facility] [address] [place], [place] [address]Dr. Jase Stinson IG % 0.6 % Critically high 0.0-0.5 [facility] Comment on above: Performed By: #### C BC ####[facility] [address] [place] [address]Dr. Jase Stinson LYMPH # 2.9 103/ul Normal 1.2-3.8 [facility] Comment on above: Performed By: #### C BC ####[facility] [address] [place] [address]Dr. Jase Stinson Lymphocytes/100 WBC (Bld) 31.1 % Normal 20.5-60.0 [facility] Comment on above: Performed By: #### C BC ####[facility] [address] [place] [address]Dr. Jase Stinson MANUAL DIFF REQ NO Normal [facility] Comment on above: Performed By: #### C BC ####[facility] [address] [place], [place] [address]Dr. Jase Stinson MCH (RBC) [Entitic mass] 29.9 pg Normal 26.7-34.0 [facility] Comment on above: Performed By: #### C BC ####[facility] [address] [place] [address]Dr. Jase Stinsno MCHC (RBC) [Mass/Vol] 32.8 g/dL Normal 29.9-35.2 [facility] Comment on above: Performed By: #### C BC ####[facility] [address] [place], [place] [address]Dr. Jase Stinson MCV (RBC) [Entitic vol] 91.1 fL Normal 81.0-99.0 [facility] Comment on above: Performed By: #### C BC ####[facility] [address] [place] [address]Dr. Jase Stinson MONO # 0.6 103/ul Normal 0.3-0.8 [facility] Comment on above: Performed By: #### C BC ####[facility] [address] [place] [address]Dr. Jase Stinson Monocytes/100 WBC (Bld) 6.9 % Normal 1.7-12.0 [facility] Comment on above: Performed By: #### C BC ####[facility] [address] [place] [address]Dr. Jase Stinson NEUT # 5.4 103/ul Normal 1.4-6.5 [facility] Comment on above: Performed By: #### C BC ####[facility] [address] [place] [address]Dr. Jase Stinson Neutrophils/100 WBC (Bld) 58.6 % Normal 43.0-75.0 [facility] Comment on above: Performed By: #### C BC ####[facility] [address] [place] [address]Dr. Jase Stinson Platelet mean volume (Bld) [Entitic vol] 9.1 fL Critically low 9.5-13.5 [facility] Comment on above: Performed By: #### C BC ####[facility] [address] [place] [address]Dr. Jase Stinson PLT 328 103/ul Normal 150-450 [facility] Comment on above: Performed By: #### C BC ####[facility] [address] [place] [address]Dr. Jase Stinson RBC 5.08 106/ul Normal 4.20-5.40 [facility] Comment on above: Performed By: #### C BC ####[facility] [address] [place] [address]Dr. Jase Stinson WBC 9.3 103/ul Normal 4.0-11.0 [facility] Comment on above: Performed By: #### C BC ####[facility] [address] [place] [address]Dr. Jase Stinson VC COMP CONSULTATIONon 10-05 VC COMP CONSULTATION Patient: CHAGO TABARES Exam Date: 10/05/2021 : 1975 Gender:F Ordering : ANNMARIE ADKINS [facility] Admission #: [id number] Family : Order #: [id number] CLICK HERE TO VIEW EXAM RADIOLOGY REPORT [...] Cotto MD on 10/05/2021 at 12:[address] [facility] VC VENOUS REFLUX KAMRAN LMTon 0 10-05-2021 VC VENOUS REFLUX KAMRAN LMT Patient: RULA TABARES Exam Date: 10/05/2021 : 1975 Gender:F Ordering : ANNMARIE ADKINS [facility] Admission #: [id number] Family : Order #: [id number] CLICK HERE TO VIEW EXAM RADIOLOGY REPORT [...] Compressibility: Normal. Flow: Minimal deep venous reflux. Barrel Lathe Operator: Distal/medial lower leg 3.1 mm with [...] incompetent branch saphenous tributaries/varicose veins Dictated by: Chreelle Cotto MD on 10/05/2021 at 10:03 Approved by: Cherelle Cotto MD on 10/05/2021 at 10:05 Normal [facility] INSULINon 09-23-2021 Insulin 11.0 uIU/mL Normal 2.6-24.9 [facility] Comment on above: Performed By: #### I NSULIN #### [facility] Laboratory [address] [place] [address] [address] Jase Stinson CBC AUTO DIFFon 09-22-2021 BASO # 0.1 103/ul Normal 0.0-0.1 [facility] Comment on above: Performed By: #### C BC ####[facility] [address] [place] [address]Dr. Jase Stinson Basophils/100 WBC (Bld) 0.7 % Normal 0.2-2.0 [facility] Comment on above: Performed By: #### C BC ####[facility] [address] [place] [address]Dr. Jase Stinson EO # 0.2 103/ul Normal 0.0-0.7 [facility] Comment on above: Performed By: #### C BC ####[facility] [address] [place] [address]Dr. Jase Stinson Eosinophils/100 WBC (Bld) 1.3 % Normal 0.9-7.0 [facility] Comment on above: Performed By: #### C BC ####[facility] [address] [place], [place] [address]Dr. Jase Stinson Erythrocyte distribution width (RBC) [Ratio] 14.3 % Normal 11.0-15.0 [facility] Comment on above: Performed By: #### C BC ####[facility] [address] [place], [place] [address]Dr. Jase Stinson Hematocrit (Bld) [Volume fraction] 44.1 % Normal 36.0-48.0 [facility] Comment on above: Performed By: #### C BC ####[facility] Eq[address]ci[address] [place], [place] [address]DrPedro Stinson Hemoglobin (Bld) [Mass/Vol] 14.5 g/dL Normal 12.0-16.0 [facility] Comment on above: Performed By: #### C BC ####[facility] [address] [place], [place] [address]DrPedro Annjose miguel Milad IG # 0.12 10e3/ul Critically high 0.00-0.03 [facility] Comment on above: Performed By: #### C BC ####[facility] [address] [place] [address]DrPedro Jase Milad IG % 0.8 % Critically high 0.0-0.5 [facility] Comment on above: Performed By: #### C BC ####[facility] [address] [place] [address]DrPedro Stinson LYMPH # 2.8 103/ul Normal 1.2-3.8 [facility] Comment on above: Performed By: #### C BC ####[facility] [address] [place], [place] [address]DrPedro Stinson Lymphocytes/100 WBC (Bld) 18.6 % Critically low 20.5-60.0 [facility] Comment on above: Performed By: #### C BC ####[facility] [address] [place], [place] [address]DrPedro Stinson MANUAL DIFF REQ NO Normal [facility] Comment on above: Performed By: #### C BC ####[facility] [address] [place], [place] [address]DrPedro Marissajose miguel Stinson MCH (RBC) [Entitic mass] 29.3 pg Normal 26.7-34.0 [facility] Comment on above: Performed By: #### C BC ####[facility] [address] [place], [place] [address]DrPedro Stinson MCHC (RBC) [Mass/Vol] 32.9 g/dL Normal 29.9-35.2 [facility] Comment on above: Performed By: #### C BC ####[facility] [address] [place], [place] [address]DrPedro Stinson MCV (RBC) [Entitic vol] 89.1 fL Normal 81.0-99.0 [facility] Comment on above: Performed By: #### C BC ####[facility] [address] [place], [place] [address]DrPedro Stinson MONO # 0.7 103/ul Normal 0.3-0.8 [facility] Comment on above: Performed By: #### C BC ####[facility] [address] [place] [address]Dr. Jase Stinson Monocytes/100 WBC (Bld) 4.3 % Normal 1.7-12.0 [facility] Comment on above: Performed By: #### C BC ####[facility] Rx[address]yd[address] [place] [address]Dr. Jase Stinson NEUT # 11.3 103/ul Critically high 1.4-6.5 [facility] Comment on above: Performed By: #### C BC ####[facility] [address] [place] [address]Dr. Jase Stinson Neutrophils/100 WBC (Bld) 74.3 % Normal 43.0-75.0 [facility] Comment on above: Performed By: #### C BC ####[facility] [address]sci[address] [place], [place] [address]Dr. Jase Stinson Platelet mean volume (Bld) [Entitic vol] 9.2 fL Critically low 9.5-13.5 [facility] Comment on above: Performed By: #### C BC ####[facility] [address] [place] [address]Dr. Jase Stinson PLT 293 103/ul Normal 150-450 [facility] Comment on above: Performed By: #### C BC ####[facility] [address]xhwmxuz[address] [place] [address]Dr. Jase Stinson RBC 4.95 106/ul Normal 4.20-5.40 [facility] Comment on above: Performed By: #### C BC ####[facility] [address] [place] [address]Dr. Jase Stinson WBC 15.2 103/ul Critically high 4.0-11.0 [facility] Comment on above: Performed By: #### C BC ####[facility] [address] [place], [place] [address]Dr. Jase Stinson CULTURE URINEon 09-22-2021 CULTURE URINE Culture Observations : LIGHT GROWTH OF MIXED GENITAL LINDY. NO POTENTIAL PATHOGENS SEEN. Normal [facility] Comment on above: Performed By: #### U RCX ####[facility] [address] [place] [address]Dr. Jase Stinson FREE THYROXINE INDEX T7on FTI 2.71 Normal 1.30-4.50 [facility] Comment on above: Performed By: #### T SH, CMP, LIPID, T7 ####[facility] [address] [place] [address]Dr. Jase Stinson T3U 33.0 % Normal 30.0-39.0 [facility] Comment on above: Performed By: #### T SH, CMP, LIPID, T7 ####[facility] [address] [place] [address]Dr. Jase Stinson T4 [Mass/Vol] 8.20 ug/dL Normal 4.80-13.90 [facility] Comment on above: Performed By: #### T SH, CMP, LIPID, T7 ####[facility] [address] [place] [address]Dr. Jase Stinson GLYCOHEMOGLOBIN A1Con 2021 ADA RECOMMENDATION SEE BELOW Normal [facility] Comment on above: Result Comment: ADA RECOMMENDED LIMIT 4.0 - 6.0 ADA THERAPEUTIC TARGET < 7.0 ACTION SUGGESTED > 7.0 Performed By: #### A 1C #### [facility] [address] [place] [address] [address] Jase Stinson Glucose [Mass/Vol] 114 mg/dL Normal [facility] Comment on above: Performed By: #### A 1C #### [facility] [address] [place] [address] [address] Jase Stinson HbA1c (Bld) [Mass fraction] 5.6 % Normal 4.5-6.2 [facility] Comment on above: Performed By: #### A 1C #### [facility] [address] [place] [address] [address] Jase Stinson IRONon 09-22-2021 Iron [Mass/Vol] 40.0 ug/dL Critically low 50.0-170.0 [facility] Comment on above: Performed By: #### I KESHA #### [facility] [address] [place], [place] [address] Dr. Jase Stinson LIPID PROFILEon 09-22-2021 CHOL-HDL RATIO NORM SEE BELOW Normal [facility] Comment on above: Result Comment: 3.3 - 4.4 LOW RISK 4.4 - 7.1 AVERAGE RISK 7.1 - 11.0 MODERATE RISK >11.0 HIGH RISK Performed By: #### T SH, CMP, LIPID, T7 ####[facility] [address] [place], [place] [address]Rs. Jase Stinson Cholesterol [Mass/Vol] 157 mg/dL Normal <=200 [facility] Comment on above: Performed By: #### T SH, CMP, LIPID, T7 ####[facility] [address] [place], [place] [address]Ot. Jase Stinson Cholesterol in HDL [Mass/Vol] 54 mg/dL Normal 40-60 [facility] Comment on above: Performed By: #### T SH, CMP, LIPID, T7 ####[facility] [address] [place] [address]DrPedro Stinson Cholesterol in LDL [Mass/Vol] 88.2 mg/dL Normal [facility] Comment on above: Performed By: #### T SH, CMP, LIPID, T7 ####[facility] [address] [place], [place] [address]Oc. Jase Stinson Cholesterol.total/Ch olesterol in HDL [Mass ratio] 2.9 {ratio} Normal [facility] Comment on above: Performed By: #### T SH, CMP, LIPID, T7 ####[facility] [address] [place], [place] [address]Lb. Jase Stinson HDL NORMAL > or = 60 mg/dl - LO W CARDIOVASCULAR RISK <40 mg/dl - HIGH CARDIOVASCULAR RISK Normal [facility] Comment on above: Performed By: #### T SH, CMP, LIPID, T7 ####[facility] [address] [place] [address]Dr. Jase Stinson LDL CALC NORMAL SEE BELOW Normal [facility] Comment on above: Result Comment: <100 mg/dl OPTIMAL 100 - 129 mg/dl NEAR OR ABOVE OPTIMAL 130 - 159 mg/dl BORDERLINE HIGH 160 - 189 mg/dl HIGH >190 mg/dl VERY HIGH Performed By: #### T SH, CMP, LIPID, T7 ####[facility] [address] [place], [place] [address]VwPedro Stinson Triglyceride [Mass/Vol] 74 mg/dL Normal <=150 [facility] Comment on above: Performed By: #### T SH, CMP, LIPID, T7 ####[facility] [address] [place], [place] [address]IsPedro Stinson VLDL CALC 14.8 mg/dL Normal [facility] Comment on above: Performed By: #### T SH, CMP, LIPID, T7 ####[facility] [address] [place], [place] [address]Dr. Jase Stinson PROF 14(COMP METB)on 022 Albumin [Mass/Vol] 3.5 g/dL Normal 3.4-5.0 [facility] Comment on above: Performed By: #### T SH, CMP, LIPID, T7 #### [facility] [facility] [address] [address] [address] Jase Stinson Albumin/Globulin [Mass ratio] 1.0 {ratio} Normal [facility] Comment on above: Performed By: #### T SH, CMP, LIPID, T7 #### [facility] [address] [address] [address] Jase Stinson ALP [Catalytic activity/Vol] 159 U/L Critically high 46-116 [facility] Comment on above: Performed By: #### T SH, CMP, LIPID, T7 #### [facility] [id number] Jase Stinson ALT [Catalytic activity/Vol] 35 U/L Normal 14-59 [facility] Comment on above: Performed By: #### T SH, CMP, LIPID, T7 #### [facility] [id number] Jase Stinson Anion gap [Moles/Vol] 11.3 mmol/L Normal [facility] Comment on above: Performed By: #### T SH, CMP, LIPID, T7 #### [facility] [address] [address] [address] Jase Stinson AST [Catalytic activity/Vol] 16 U/L Normal 15-37 [facility] Comment on above: Performed By: #### T SH, CMP, LIPID, T7 #### [facility] [address] [address] [address] Jase Stinson Bilirubin [Mass/Vol] 0.3 mg/dL Normal 0.2-1.0 [facility] Comment on above: Performed By: #### T SH, CMP, LIPID, T7 #### [facility] [address] [place] [address] Dr. Jase Stinson Calcium [Mass/Vol] 9.0 mg/dL Normal 8.5-10.1 [facility] Comment on above: Performed By: #### T SH, CMP, LIPID, T7 #### [facility] [address] [place] [address] Dr. Jase Stinson Chloride [Moles/Vol] 104 mmol/L Normal 98-107 [facility] Comment on above: Performed By: #### T SH, CMP, LIPID, T7 #### [facility] [address] [place] [address] Dr. Jase Stinson CO2 [Moles/Vol] 28.4 mmol/L Normal 21.0-32.0 The [facility] Comment on above: Performed By: #### T SH, CMP, LIPID, T7 #### [facility] [address] [place] [address] Dr. Jase Stinson Creatinine [Mass/Vol] 0.77 mg/dL Normal 0.55-1.02 [facility] Comment on above: Performed By: #### T SH, CMP, LIPID, T7 #### [facility] [address] [place] [address] Dr. Jase Stinson EGFR-AF SALVADOREAN >60 Normal >=60 [facility] Comment on above: Performed By: #### T SH, CMP, LIPID, T7 #### [facility] [address] [address] [address] Jase Stinson EGFR-NON AF SALVADOREAN >60 Normal >=60 [facility] Comment on above: Performed By: #### T SH, CMP, LIPID, T7 #### [facility] [address] [address] [address] Jase Stinson Globulin (S) [Mass/Vol] 3.6 g/dL Normal [facility] Comment on above: Performed By: #### T SH, CMP, LIPID, T7 #### [facility] [address] [address] [address] Jase Stinson Glucose [Mass/Vol] 104 mg/dL Normal 74-106 [facility] Comment on above: Performed By: #### T SH, CMP, LIPID, T7 #### [facility] [address] [address] [address] Jase Stinson Potassium [Moles/Vol] 3.7 mmol/L Normal 3.5-5.1 [facility] Comment on above: Performed By: #### T SH, CMP, LIPID, T7 #### [facility] [address] [address] [address] Jase Stinson Protein [Mass/Vol] 7.1 g/dL Normal 6.4-8.2 [facility] Comment on above: Performed By: #### T SH, CMP, LIPID, T7 #### [facility] [address] [address] [address] Jase Stinson Sodium [Moles/Vol] 140 mmol/L Normal 136-145 [facility] Comment on above: Performed By: #### T SH, CMP, LIPID, T7 #### [facility] [address] [address] [address] Jase Stinson Urea nitrogen [Mass/Vol] 7.0 mg/dL Normal 7.0-18.0 [facility] Comment on above: Performed By: #### T SH, CMP, LIPID, T7 #### [facility] [address] [address] [address] Jase Stinson Urea nitrogen/Creatinine [Mass ratio] 9.1 mg/mg Normal [facility] Comment on above: Performed By: #### T SH, CMP, LIPID, T7 #### [facility] [address] [place] [address] Dr. Jase Stinson TSHon 09-22-2021 TSH 0.775 uIU/mL Normal 0.358-3.740 [facility] Comment on above: Performed By: #### T SH, CMP, LIPID, T7 ####[facility] [id number] [address] Jase Stinson UA RANDOM W/MICROSCOPICon BACTERIA NONE SEEN Normal NONE SEEN [facility] Comment on above: Performed By: #### U AMIC #### [facility] [address] [place] [address] Dr. Jase Stinson Bilirubin Ql (U) Negative Normal NEGATIVE [facility] Comment on above: Performed By: #### U AMIC #### [facility] [address] [place] [address] Dr. Jase Stinson CAST NONE SEEN Normal NONE SEEN [facility] Comment on above: Performed By: #### U AMIC #### [facility] [address] [place] [address] Dr. Jase Stinson Clarity (U) CLEAR Normal CLEAR [facility] Comment on above: Performed By: #### U AMIC #### [facility] [address] [place] [address] Dr. Jase Stinson Color (U) LT. YELLOW Normal YELLOW [facility] Comment on above: Performed By: #### U AMIC #### [facility] [address] [place] [address] Dr. Jase Stinson Crystals LM Nom (Urine sed) NONE SEEN Normal NONE SEEN [facility] Comment on above: Performed By: #### U AMIC #### [facility] [address] [place] [address] Dr. Jase Stinson Epithelial cells LM Ql (Urine sed) NONE SEEN Normal NONE SEEN /RARE [facility] Comment on above: Performed By: #### U AMIC #### [facility] [address] [address] [address] Jase Stinson Glucose Ql (U) Negative Normal NEGATIVE [facility] Comment on above: Performed By: #### U AMIC #### [facility] [address] [address] [address] Jase Stinson Hemoglobin Ql (U) Negative Normal NEGATIVE [facility] Comment on above: Performed By: #### U AMIC #### [facility] [address] [address] [address] Jase Stinson Ketones Ql (U) Negative Normal NEGATIVE [facility] Comment on above: Performed By: #### U AMIC #### [facility] [address] [address] [address] Jase Stinson LEUKOCYTES Negative Normal NEGATIVE [facility] Comment on above: Performed By: #### U AMIC #### [facility] [address] [place] [address] Dr. Jase Stinson MUCOUS NONE SEEN Normal NONE SEEN [facility] Comment on above: Performed By: #### U AMIC #### [facility] [address] [address] [address] Jase Stinson Nitrite Ql (U) Negative Normal NEGATIVE [facility] Comment on above: Performed By: #### U AMIC #### [facility] [address] [place] [address] Dr. Jase Stinson pH (U) 7.0 [pH] Normal 5-9 [facility] Comment on above: Performed By: #### U AMIC #### [facility] [address] [place] [address] Dr. Jase Stinson RBC NONE SEEN Abnormal 0-2 [facility] Comment on above: Performed By: #### U AMIC #### [facility] [address] [place] [address] Dr. Jase Stinson SPEC GRAVITY <=1.005 Abnormal 1.005-<=1.025 [facility] Comment on above: Performed By: #### U AMIC #### [facility] [address] [place] [address] Dr. Jase Stinson UA PROTEIN Negative Normal NEGATIVE/ TRACE [facility] Comment on above: Performed By: #### U AMIC #### [facility] [address] [place] [address] Dr. Jase Stinson Urobilinogen Qn (U) 0.2 {Sanchez'U}/dL Normal 0.2 - 1. 0 [facility] Comment on above: Performed By: #### U AMIC #### [facility] [address] [place] [address] Dr. Jase Stinson WBC NONE SEEN Normal NONE SEEN [facility] Comment on above: Performed By: #### U AMIC #### [facility] [address] [place] [address] Dr. Jase Stinson XR CHEST 2 Von [...] CHERELLE COTTO Date: 2021-03-09 11:45 Normal [facility] CULTURE THROATon 02-23-2021 CULTURE THROAT Culture Observations : NORMAL RESPIRATORY LINDY. Normal [facility] Comment on above: Performed By: #### S SCRN, THRTCX #### [facility] [address] [place] [address] Dr. Jase Stinson Covid-19 PCR (CVDTB)on 01-27 SARS-CoV-2 (COVID-19) RNA VITO+probe Ql (Unsp spec) Not detected Normal NOT DETECTED [facility] Comment on above: Result Comment: This test is not yet approved or cleared by the [place] FDA. When there are no FDA-approved or cleared tests available, and other criteria are met, FDA can make tests available under an emergency access mechanism called an Emergency Use Authorization (EUA). The EUA for this test is supported by the Hand [employer] of Health and Human Service's (HHS's) declaration [...] with SARS-CoV-2. Performed By: #### C VDTBH ####[facility] [id number] [place], [place] [address]GmDr. Jase Stinson STREPT SCREENon 02-23-2021 STREP SCREEN A Negative Normal NEGATIVE [facility] Comment on above: Performed By: #### S SCRN, THRTCX #### [facility] [address] [place], [place] [address] Dr. Jase Stinson Vital Signs Date Time Vital Sign Value Performing Clinician Faci lity 12-21-2021 09:23-0400 Diastolic blood pressure 80 mm[Hg] REED OR WIND INSTRUMENT REPAIRER-C Annmarie Adkins Work Phone: [facility] 12-21-2021 09:23-0400 Heart rate 80 /min REED OR WIND INSTRUMENT REPAIRER-C Annmarie Adkins Work Phone: [facility] 12-21-2021 09:23-0400 Respiratory rate 16 /min REED OR WIND INSTRUMENT REPAIRER-Ashley Adkins Work Phone: [facility] 12-21-2021 09:23-0400 SaO2% (BldA) [Mass fraction] 98 % REED OR WIND INSTRUMENT REPAIRER-C Annmarie Adkins Work Phone: [facility] 12-21-2021 09:23-0400 Systolic blood pressure 123 mm[Hg] REED OR WIND INSTRUMENT REPAIRER-C Annmarie Adkins Work Phone: [facility] 12-21-2021 07:31-0400 Body height 167.64 cm REED OR WIND INSTRUMENT REPAIRER-C Annmarie Adkins Work Phone: [facility] 12-21-2021 07:31-0400 Body temperature 98.1 [degF] REED OR WIND INSTRUMENT REPAIRER-C Annmarie Lucille Work Phone: [facility] 12-21-2021 07:31-0400 Body weight 95.25 kg REED OR WIND INSTRUMENT REPAIRER-C Annmarie Lucille Work Phone: [facility] Encounters Encounter Date Encounter Type Care Provider Facility Start: 12-21-2021 End: 12-21-2021 ambulatory Darvin Motley Facility:[facility] Start: 12-21-2021 End: 12-21-2021 Admission to same day surgery center REED OR WIND INSTRUMENT REPAIRER-C Annmarie Lucille Work Phone: [facility] Start: 12-21-2021 End: 12-21-2021 ambulatory REED OR WIND INSTRUMENT REPAIRER-C Annmarie Cande [address] Work Phone: [facility] Work Phone: Start: 12-19-2021 End: 12-19-2021 ambulatory Darvin Motley Facility:[facility] Start: 12-19-2021 End: 12-19-2021 ambulatory REED OR WIND INSTRUMENT REPAIRER-C Annmarie Cande [address] Work Phone: [facility] Work Phone: Start: 12-19-2021 End: 12-19-2021 Patient encounter procedure REED OR WIND INSTRUMENT REPAIRER-C Annmarie Lucille Work Phone: [facility] Start: 12-09-2021 End: 12-10-2021 ambulatory ANNMARIE ADKINS Facility:[facility] Start: 12-05-2021 End: 12-06-2021 ambulatory ANNMARIE ADKINS Facility:[facility] Start: 11-25-2021 End: 11-26-[address] CHERELLE COTTO Facility:[facility] Start: 11-14-2021 End: 11-15-2021 ambulatory ANNMARIE ADKINS Facility:[facility] Start: 11-10-2021 End: 11-11-[address] CHERELLE COTTO Facility:[facility] Start: 11-08-2021 End: 11-09-2021 ambulatory ANNMARIE ADKINS Facility:[facility] Start: 11-07-2021 End: 09-13-[address] CHERELLE COTTO Facility:[facility] Start: 10-05-2021 End: 10-06-[address] MICHAEL GASPAR Facility:[facility] Start: 10-05-2021 End: 10-06-2021 ambulatory ANNMARIE ADKINS Facility:[facility] Start: 09-22-2021 End: 09-23-2021 ambulatory ANNMARIE ADKINS Facility:[facility] Start: 03-09-2021 End: 03-10-2021 ambulatory RAVEN HERRON Facility:[facility] Start: 02-23-2021 End: 02-23-2021 ambulatory RAVEN HERRON Facility:[facility] Procedures Date Procedure Procedure Detail Performing Clinician Start: 12-21-2021 Esophagogastroduodenoscopy REED OR WIND INSTRUMENT REPAIRER-C Annmarie Adkins Work Phone: Plan of Treatment Date Care Activity Detail Author Start: 12-21-2021 [facility] Patient Education Esophageal Dilation [facility] Work Phone: Payers Date Payer Category Payer Self-pay 1975 Unknown [id number] 2.16.84 [id number] 1975 Unknown [id number] 2.16.84 [id number] 1973 Unknown [id number] 2.16.84 [id number] 1973 Unknown [id number] 2.16.84 [id number] 1973 Unknown [id number] 2.16.84 [id number] 1973 Unknown [id number] 2.16.84 [id number] 1973 Unknown [id number] .16.84 [id number] 1973 Unknown [id number] 2.16.84 [id number] 1973 Unknown [id number] 2.16.84 [id number] 1973 Unknown [id number] 2.16.84 [id number] 1973 Unknown [id number] 2.16.84 [id number] 1973 Unknown [id number] 2.16.84 [id number] 1961 Medicaid [id number] Unknown [id number] 2.16.8 [id number] Unknown [id number] 2.16.8 [id number] Social History Date Type Detail Facility Tobacco smoking stat [facility] Unknown if ever smoked [facility] Work Phone: Start: 1975 Sex Assigned At Female F [facility] Start: 12-21-2021 [facility] Goals Date Patient Goal Desired Activity /State Procedure note 12-21-2021 Note Date & Type Note Facility 12-21-2021 Procedure note [facility] Evaluation note Note Date & Type Note Facility Evaluation note No assessment information availa ble [facility] Work Phone: History and physical note Note Date & Type Note Facility History and physical note Note Date/Time December 21, 2021 8:43am [facility] [address] [place] [address] Gastroenterology H&P Signed Patient: Rula Tabares MR#: [id number] : 1975 Acct:[id number] Age/Sex: 46 / F Adm Date: 2 Loc: Room: Type: [facility] Attending Dr: Darvin Motley MD Copies to: [...] <Electronically signed by Darvin Motley MD> 12/21/21842 [facility] Work Phone: Hospital Discharge instructions Note Date [...] NOT operate machinery such as power tools, [employer] mowers, snow blowers, sewing machines, etc. for [...] Follow up with PCP. - Office number [phone]. [facility] Work Phone: Chief Complaint and Reason for [...] Dates Darvin Motley MD Attending Provider Active JACE Moreno Primary Care Provider Active Team Status: Active Member Role Status Dates JACE Moreno Primary Care Provider Active Goals (unrecognized section and content) Goals may be documented in a n alternate section INFORMATION SOURCE (unrecogn ized section and content) DATE CREATED AUTHOR 12/24/2021 [facility] DATE CREATED AUTHOR AUTHOR'S BENJI BANKS 12/28/2021 [facility] FOR RECORDS PERTAINING TO PATIENTS WHO [...] BE BASED ON THE PRIMARY CLINICAL RECORDS. [employer] provides no warranty or guarantee of the accuracy or completeness of information in this document.
--- NOTE | 2024-05-20 19:29 | ED_ITS ---
HPI HPI - Extremity Injury (Upper) General Chief Complaint: Extremity Injury, Upper Stated Complaint: FALL, PAIN IN UPPER LEFT EXTREMITY Time Seen by Provider: 05/20/24 19:21 Source: patient Mode of arrival: walk-in Limitations: no limitations History of Present Illness HPI narrative: Patient is a 49-year-old female who presents to the emergency department for evaluation of an injury to the left forearm and elbow. She is right-hand dominant. She states she tripped over her dog and her left arm slid across the counter into the refrigerator injuring the left elbow and forearm. She did not hit her head or get knocked out. She is ambulatory. No medications taken prior to arrival. She is on no blood thinners. Related Data Previous Rx's ?Medication ?Instructions ?Recorded ketorolac 10 mg tablet 10 mg PO TID PRN pain #10 tabs 05/20/24 Allergies Allergy/AdvReac Type Severity Reaction Status Date / Time No Known Drug Allergies Allergy Verified 05/20/24 19:26 Opioid HPI Opioid Management Most Recent Pain and Opioid Data: Last Pain Scale 7 05/20/24 19:39 05/20/24 Last MAR Pain Assessment 05/20/24 19:39 Review of Systems ROS Constitutional Denies: fever or chills Ears, nose, mouth, and throat Denies: throat pain or nasal congestion Cardiovascular Denies: chest pain Respiratory Denies: shortness of breath or cough Gastrointestinal Denies: nausea or vomiting Musculoskeletal Denies: back pain, neck pain or extremity pain Integumentary/Breast Denies: rash Neurological Denies: numbness in extremities or weakness in extremities Hematologic/Lymphatic Denies: easy bruising or easy bleeding PFSH PFSH Social History Little interest or pleasure in doing things: not at all Feeling down, depressed, or hopeless: not at all Exam Narrative Exam Narrative: Gen.: Awake, alert, in no distress Head: Normocephalic, atraumatic ENT: Moist mucous membranes Respiratory: No respiratory distress Extremities: Normal limited radiology technician strength in the left hand, normal flexion and extension at the left elbow with moderate tenderness of the left mid forearm. Mild edema and faint ecchymosis noted. 2+ left radial pulse. No obvious deformity Psych: Normal mood and affect Neuro: No focal neuro deficit Skin: Warm, dry, intact Constitutional Vital Signs, click to edit/add: Last Vital Signs Temp 98.3 F 05/20/24 19:22 Pulse 99 H 05/20/24 19:22 Resp 17 05/20/24 19:22 BP 158/103 H 05/20/24 19:22 Pulse Ox 100 05/20/24 19:22 O2 Del Method Room Air 05/20/24 19:22 Course Vital Signs Vital signs: Vital Signs Temperature 98.3 F 05/20/24 19:22 Pulse Rate 99 H 05/20/24 19:22 Respiratory Rate 17 05/20/24 19:22 Blood Pressure 158/103 H 05/20/24 19:22 Pulse Oximetry 100 05/20/24 19:22 Oxygen Delivery Method Room Air 05/20/24 19:22 Temperature 98.3 F 05/20/24 19:22 Pulse Rate 99 H 05/20/24 19:22 Respiratory Rate 17 05/20/24 19:22 Blood Pressure 158/103 H 05/20/24 19:22 Pulse Oximetry 100 05/20/24 19:22 Oxygen Delivery Method Room Air 05/20/24 19:22 MDM - Extremity Injury (Upper) MDM Narrative Medical decision making narrative: X-rays of the left forearm and elbow show no evidence of fracture or dislocation. Patient treated for pain in the ER. She is encouraged to rest, ice, gently stretch the area. NSAIDs given for home. She is neurovascularly intact at discharge. Return to the ER if symptoms change or worsen SUPERVISED APC VISIT, PHYSICIAN ATTESTATION: Based on the medical record the care appears appropriate. ? Medical Records Attestation: I reviewed the patient's medical records. Imaging Data XR forearm/elbow: Attestation: I have reviewed the pertinent imaging results. Discharge Plan Discharge Chief Complaint: Extremity Injury, Upper Clinical Impression: Contusion of left arm Patient Disposition: Home, Self-Care Time of Disposition Decision: 20:04 Condition: Good Prescriptions / Home Meds: New ketorolac 10 mg tablet 10 mg PO TID PRN (Reason: pain) Qty: 10 0RF Print Language: Indonesian Instructions: Contusion in Adults (ED) Referrals: CHARMAINE ADKINS [Primary Care Provider] - 1 week Discharge Date/Time: 05/20/24 20:12
[2024-05-20] MEDS: HYDROCODONE/ACET 5-325 MG TABLET 1 TAB PO (19:39)
== END 2024-05-20 20:12 | disposition home or self-care (01) ==
PROVIDERS: Emergency Provider Emergency Medicine; PCP Nurse Practitioner Family
DX: S40.022A Contusion of left upper arm, initial encounter (principal); W01.198A Fall on same level from slipping, tripping and stumbling with subsequent striking against other object, initial encounter
CPT/HCPCS: 73080; 73090; 99284

== ENCOUNTER 2024-06-09 08:26 | Outpatient (OUT) | payer OTHER, SELFPAY ==
--- OUTSIDE RECORDS SUMMARY | 2024-06-09 08:50 | XMS_ITS | CCD ---
Author Organization [facility] Care Team Providers Care Fishing Worker Name Role Phone MD Darvin Motley Attending Provider [phone] JACE Adkins Primary Care Provider ANNMARIE ADKINS Primary Care Unavailable LUCILLE, ANNMARIE Consulting Unavailable LUCILLE, ANNMARIE Attending Unavailable LUCILLE, ANNMARIE Admitting Unavailable NEHAY, DR RODRIGUEZ Consulting Unavailable [...] Translations: [shellfish derived] Allergy to substance 12-20-2021 [facility] Medications Current Medications Medication Drug Class(es) Dates [...] Name Value Interpretation Reference Range Facility COVID-19 [facility] 12-19-2021 SARS-CoV-2 (COVID-19) RNA VITO+probe Ql (Unsp spec) Negative Normal Negative [facility] Comment on above: Order Comment: Healt hcare Worker?: N Result Comment: Testing for SARS-CoV-2 by RT-PCR This test was developed and its performance characteristics determined by [employer] ([employer]) and validated at the [facility]. This test has not been FDA [...] is terminated or revoked sooner. PERFORMED BY: [place] [address] PATHOLOGIST HARVEST SUPERVISOR ZACH LAM M.D. Performed By: #### C OVID 19 [facility] #### [address] COVID-19 Positive/NegativeOr dered By: Darvin Motley on 12-19-2021 SARS-CoV-2 (COVID-19) N gene VITO+probe Ql (Resp) Negative Negative [facility] Comment on above: Testing for SARS-CoV -2 by RT-PCRThis test was developed and its performance characteristics determined by [employer] ([employer]) and validated at the [facility]. This test has not been FDA [...] : DR CHERELLE COTTO M.D. Admission #: [id number] Family : Order #: [id number] CLICK HERE [...] Cotto MD on 12/09/2021 at 08:31 Normal [facility] VC EXT VENOUS RT LIMITEDon 1 VC EXT VENOUS RT LIMITED Patient: RULA TABARES Exam Date: 12/09/2021 : 1975 Gender:F Ordering : DR CHERELLE COTTO M.D. Admission #: [id number] Family : Order #: [id number] CLICK HERE TO VIEW EXAM RADIOLOGY REPORT [...] Cotto MD on 12/09/2021 at 08:15 Normal [facility] VC ENDOVENOUS ABL 1ST V RTon 12-05-2021 VC ENDOVENOUS ABL 1ST V RT Patient: RULA TABARES Exam Date: 12/05/2021 : 1975 Gender:F Ordering : DR CHERELLE COTTO M.D. Admission #: [id number] Family : Order #: [id number] CLICK HERE TO VIEW EXAM RADIOLOGY REPORT [...] Cotto MD on 12/05/2021 at 08:45 Normal [facility] VC CONSULT FOLLOWUPon 2021 VC CONSULT FOLLOWUP Patient: KENYON TABARES Exam Date: 11/25/2021 : 1975 Gender:F Ordering : DR CHERELLE COTTO M.D. Admission #: [id number] Family : Order #: [id number] CLICK HERE TO VIEW EXAM RADIOLOGY REPORT [...] size with no significant reflux. No incompetent director web veins were identified. Several tributaries appear to [...] Cotto MD on 11/25/2021 at 10:43 Normal [facility] ECHOCARDIO M/2D COMPLETEon 0 11-14-2021 ECHOCARDIO M/2D COMPLETE Patient: RULA TABARES Exam Date: 11/14/2021 : 1975 Gender:F Ordering : ANNMARIE ADKINS [facility] Admission #: [id number] Family : Order #: [id number] CLICK HERE TO VIEW EXAM ECHOCARDIOGRAM REPORT [...] Castro M.D. on 11/15/2021 at 16:50 Normal [facility] VC CONSULT FOLLOWUPon 2021 VC CONSULT FOLLOWUP Patient: KENYON TABARES Exam Date: 11/10/2021 : 1975 Gender:F Ordering : DR CHERELLE COTTO M.D. Admission #: [id number] Family : Order #: [id number] CLICK HERE TO VIEW EXAM RADIOLOGY REPORT [...] Cotto MD on 11/10/2021 at 10:57 Normal [facility] VC EXT VENOUS LT LIMITEDon 0 11-10-2021 VC EXT VENOUS LT LIMITED Patient: RULA TABARES Exam Date: 11/10/2021 : 1975 Gender:F Ordering : DR CHERELLE COTTO M.D. Admission #: [id number] Family : Order #: [id number] CLICK HERE TO VIEW EXAM RADIOLOGY REPORT [...] Cotto MD on 11/10/2021 at 10:52 Normal [facility] XR MODIFIED BARIUM SWALLOWon 11-08-2021 XR MODIFIED [...] by: LLOYD WILLIS Date: 2021-11-08 11:46 Normal [facility] VC ENDOVENOUS ABL 1ST V LTon 11-07-2021 VC ENDOVENOUS ABL 1ST V LT Patient: RULA TABARES Exam Date: 11/07/2021 : 1975 Gender:F Ordering : DR CHERELLE COTTO M.D. Admission #: [id number] Family : Order #: [id number] CLICK HERE TO VIEW EXAM RADIOLOGY REPORT PROCEDURE: VEIN CENTER ENDOVENOUS ABLATION FIRST VEIN LEFT COMPARISON: None. INDICATIONS: Pain co-occurrent and due to varicose veins of bilateral legs I83.813 OPERATIVE REPORT: The risks and benefits of the procedure had been previously discussed, and were rediscussed at length. Informed written consent was obtained by sc and Manan Orellana assisted. Time out procedure [...] M.D. on 11/07/2021 at 09:35 Normal [facility] CBC AUTO DIFFon 10-05-2021 BASO # 0.1 103/ul Normal 0.0-0.1 [facility] Comment on above: Performed By: #### C BC ####[facility] [address] [place] [id number]. Jase Stinson Basophils/100 WBC (Bld) 0.9 % Normal 0.2-2.0 [facility] Comment on above: Performed By: #### C BC ####[facility] [address] [place] [address]Dr. Jase Stinson EO # 0.2 103/ul Normal 0.0-0.7 [facility] Comment on above: Performed By: #### C BC ####[facility] [address] [place], [place] [address]Dr. Jase Stinson Eosinophils/100 WBC (Bld) 1.9 % Normal 0.9-7.0 [facility] Comment on above: Performed By: #### C BC ####[facility] [address] [place], [place] [address]Dr. Jase Stinson Erythrocyte distribution width (RBC) [Ratio] 14.6 % Normal 11.0-15.0 [facility] Comment on above: Performed By: #### C BC ####[facility] [address] [place], [place] [address]Dr. Jase Stinson Hematocrit (Bld) [Volume fraction] 46.3 % Normal 36.0-48.0 [facility] Comment on above: Performed By: #### C BC ####[facility] [address] [place], [place] [address]Dr. Jase Stinson Hemoglobin (Bld) [Mass/Vol] 15.2 g/dL Normal 12.0-16.0 [facility] Comment on above: Performed By: #### C BC ####[facility] [address] [place], [place] [address]Dr. Jase Stinson IG # 0.06 10e3/ul Critically high 0.00-0.03 [facility] Comment on above: Performed By: #### C BC ####[facility] [address] [place], [place] [address]Dr. Jase Stinson IG % 0.6 % Critically high 0.0-0.5 [facility] Comment on above: Performed By: #### C BC ####[facility] [address] [place] [address]Dr. Jase Stinson LYMPH # 2.9 103/ul Normal 1.2-3.8 [facility] Comment on above: Performed By: #### C BC ####[facility] [address] [place] [phone]. Jase Stinson Lymphocytes/100 WBC (Bld) 31.1 % Normal 20.5-60.0 [facility] Comment on above: Performed By: #### C BC ####[facility] [address] [place] [address]Dr. Jase Stinson MANUAL DIFF REQ NO Normal [facility] Comment on above: Performed By: #### C BC ####[facility] [address] [place], [place] [address]Dr. Jase Stinson MCH (RBC) [Entitic mass] 29.9 pg Normal 26.7-34.0 [facility] Comment on above: Performed By: #### C BC ####[facility] [address] [place] [address]Dr. Jase Stinson MCHC (RBC) [Mass/Vol] 32.8 g/dL Normal 29.9-35.2 [facility] Comment on above: Performed By: #### C BC ####[facility] [address] [place], [place] [id number]. Jase Stinson MCV (RBC) [Entitic vol] 91.1 fL Normal 81.0-99.0 [facility] Comment on above: Performed By: #### C BC ####[facility] [address] [place] [phone]. Jase Stinson MONO # 0.6 103/ul Normal 0.3-0.8 [facility] Comment on above: Performed By: #### C BC ####[facility] [address] [place] [phone]. Jase Stinson Monocytes/100 WBC (Bld) 6.9 % Normal 1.7-12.0 [facility] Comment on above: Performed By: #### C BC ####[facility] [address] [place] [phone]. Jase Stinson NEUT # 5.4 103/ul Normal 1.4-6.5 [facility] Comment on above: Performed By: #### C BC ####[facility] [address] [place] [phone]. Jase Stinson Neutrophils/100 WBC (Bld) 58.6 % Normal 43.0-75.0 [facility] Comment on above: Performed By: #### C BC ####[facility] [address] [place] [phone]. Jase Stinson Platelet mean volume (Bld) [Entitic vol] 9.1 fL Critically low 9.5-13.5 [facility] Comment on above: Performed By: #### C BC ####[facility] [address] [place] [address]Dr. Jase Stinson PLT 328 103/ul Normal 150-450 [facility] Comment on above: Performed By: #### C BC ####[facility] [address] [place] [phone]. Jase Stinson RBC 5.08 106/ul Normal 4.20-5.40 [facility] Comment on above: Performed By: #### C BC ####[facility] [address] [place] [phone]. Jase Stinson WBC 9.3 103/ul Normal 4.0-11.0 [facility] Comment on above: Performed By: #### C BC ####[facility] [address] [place] [phone]. Jase tSinson VC COMP CONSULTATIONon 10-05 VC COMP CONSULTATION Patient: CHAGO TABRAES Exam Date: 10/05/2021 : 1975 Gender:F Ordering : ANNMARIE ADKINS [facility] Admission #: [id number] Family : Order #: [id number] CLICK HERE TO VIEW EXAM RADIOLOGY REPORT [...] Cotto MD on 10/05/2021 at 12:09 Normal [facility] VC VENOUS REFLUX KAMRAN LMTon 0 10-05-2021 VC VENOUS REFLUX KAMRAN LMT Patient: RULA TABARES Exam Date: 10/05/2021 : 1975 Gender:F Ordering : ANNMARIE ADKINS [facility] Admission #: [id number] Family : Order #: [id number] CLICK HERE TO VIEW EXAM RADIOLOGY REPORT [...] Compressibility: Normal. Flow: Minimal deep venous reflux. Motor Operator: Distal/medial lower leg 3.1 mm with [...] MD on 10/05/2021 at 10:05 Normal [facility] INSULINon 09-23-2021 Insulin 11.0 uIU/mL Normal 2.6-24.9 [facility] Comment on above: Performed By: #### I NSULIN #### [facility] [address] [place] [address] [address] Jase Stinson CBC AUTO DIFFon 09-22-2021 BASO # 0.1 103/ul Normal 0.0-0.1 [facility] Comment on above: Performed By: #### C BC ####[facility] [address] [place] [address]Dr. Jase Stinson Basophils/100 WBC (Bld) 0.7 % Normal 0.2-2.0 [facility] Comment on above: Performed By: #### C BC ####[facility] [address] [place] [address]Dr. Jase Stinson EO # 0.2 103/ul Normal 0.0-0.7 [facility] Comment on above: Performed By: #### C BC ####[facility] [address] [place] [address]Dr. Jase Stinson Eosinophils/100 WBC (Bld) 1.3 % Normal 0.9-7.0 [facility] Comment on above: Performed By: #### C BC ####[facility] [address] [place], [place] [address]Dr. Jase Stinson Erythrocyte distribution width (RBC) [Ratio] 14.3 % Normal 11.0-15.0 [facility] Comment on above: Performed By: #### C BC ####[facility] [address] [place], [place] [address]Dr. Jase Stinson Hematocrit (Bld) [Volume fraction] 44.1 % Normal 36.0-48.0 [facility] Comment on above: Performed By: #### C BC ####[facility] [address] [place], [place] [address]DrPedro Stinson Hemoglobin (Bld) [Mass/Vol] 14.5 g/dL Normal 12.0-16.0 [facility] Comment on above: Performed By: #### C BC ####[facility] [address] [place], [place] [address]DrPedro Annjose miguel Milad IG # 0.12 10e3/ul Critically high 0.00-0.03 [facility] Comment on above: Performed By: #### C BC ####[facility] [address] [place] [address]DrPedro Jase Milad IG % 0.8 % Critically high 0.0-0.5 [facility] Comment on above: Performed By: #### C BC ####[facility] [address] [place] [address]DrPedro Stinson LYMPH # 2.8 103/ul Normal 1.2-3.8 [facility] Comment on above: Performed By: #### C BC ####[facility] [address] [place], [place] [address]DrPedro Stinson Lymphocytes/100 WBC (Bld) 18.6 % Critically low 20.5-60.0 [facility] Comment on above: Performed By: #### C BC ####[facility] [address] [place], [place] [address]DrPedro Stinson MANUAL DIFF REQ NO Normal [facility] Comment on above: Performed By: #### C BC ####[facility] [address] [place], [place] [address]DrPedro Marissajose miguel Stinson MCH (RBC) [Entitic mass] 29.3 pg Normal 26.7-34.0 [facility] Comment on above: Performed By: #### C BC ####[facility] [address] [place], [place] [address]DrPedro Stinson MCHC (RBC) [Mass/Vol] 32.9 g/dL Normal 29.9-35.2 [facility] Comment on above: Performed By: #### C BC ####[facility] [address] [place], [place] [address]DrPedro Stinson MCV (RBC) [Entitic vol] 89.1 fL Normal 81.0-99.0 [facility] Comment on above: Performed By: #### C BC ####[facility] [address] [place], [place] [address]DrPedro Stinson MONO # 0.7 103/ul Normal 0.3-0.8 [facility] Comment on above: Performed By: #### C BC ####[facility] [address] [place] [address]Dr. Jase Stinson Monocytes/100 WBC (Bld) 4.3 % Normal 1.7-12.0 [facility] Comment on above: Performed By: #### C BC ####[facility] [address] [place] [address]Dr. Jase Stinson NEUT # 11.3 103/ul Critically high 1.4-6.5 [facility] Comment on above: Performed By: #### C BC ####[facility] [address] [place] [address]Dr. Jase Stinson Neutrophils/100 WBC (Bld) 74.3 % Normal 43.0-75.0 [facility] Comment on above: Performed By: #### C BC ####[facility] [address] [place], [place] [address]Dr. Jase Stinson Platelet mean volume (Bld) [Entitic vol] 9.2 fL Critically low 9.5-13.5 [facility] Comment on above: Performed By: #### C BC ####[facility] [address] [place] [address]Dr. Jase Stinson PLT 293 103/ul Normal 150-450 [facility] Comment on above: Performed By: #### C BC ####[facility] [address] [place] [address]Dr. Jase Stinson RBC 4.95 106/ul Normal 4.20-5.40 [facility] Comment on above: Performed By: #### C BC ####[facility] [address] [place] [phone]. Jase Stinson WBC 15.2 103/ul Critically high 4.0-11.0 [facility] Comment on above: Performed By: #### C BC ####[facility] [address] [place], [place] [address]Dr. Jase Stinson CULTURE URINEon 09-22-2021 CULTURE URINE Culture Observations : LIGHT GROWTH OF MIXED GENITAL LINDY. NO POTENTIAL PATHOGENS SEEN. Normal [facility] Comment on above: Performed By: #### U RCX ####[facility] [address] [place] [phone]. Jase Stinson FREE THYROXINE INDEX T7on FTI 2.71 Normal 1.30-4.50 [facility] Comment on above: Performed By: #### T SH, CMP, LIPID, T7 ####[facility] [address] [place] [phone]. Jase Stinson T3U 33.0 % Normal 30.0-39.0 [facility] Comment on above: Performed By: #### T SH, CMP, LIPID, T7 ####[facility] [address] [place] [phone]. Jase Stinson T4 [Mass/Vol] 8.20 ug/dL Normal 4.80-13.90 [facility] Comment on above: Performed By: #### T SH, CMP, LIPID, T7 ####[facility] [address] [place] [phone]. Jase Stinson GLYCOHEMOGLOBIN A1Con 2021 ADA RECOMMENDATION SEE BELOW Normal [facility] Comment on above: Result Comment: ADA RECOMMENDED LIMIT 4.0 - 6.0 ADA THERAPEUTIC TARGET < 7.0 ACTION SUGGESTED > 7.0 Performed By: #### A 1C #### [facility] [address] [place] [address] [address] Jase Stinosn Glucose [Mass/Vol] 114 mg/dL Normal [facility] Comment on above: Performed By: #### A 1C #### [facility] [address] [place] [address] [address] Jase Stinson HbA1c (Bld) [Mass fraction] 5.6 % Normal 4.5-6.2 [facility] Comment on above: Performed By: #### A 1C #### [facility] [address] [place] [address] [address] Jase Stinson IRONon 09-22-2021 Iron [Mass/Vol] 40.0 ug/dL Critically low 50.0-170.0 [facility] Comment on above: Performed By: #### I KESHA #### [facility] [address] [place], [place] [address] Dr. Jase Stinson LIPID PROFILEon 09-22-2021 CHOL-HDL RATIO NORM SEE BELOW Normal [facility] Comment on above: Result Comment: 3.3 - 4.4 LOW RISK 4.4 - 7.1 AVERAGE RISK 7.1 - 11.0 MODERATE RISK >11.0 HIGH RISK Performed By: #### T SH, CMP, LIPID, T7 ####[facility] [address] [place], [place] [address]Rg. Jase Stinson Cholesterol [Mass/Vol] 157 mg/dL Normal <=200 [facility] Comment on above: Performed By: #### T SH, CMP, LIPID, T7 ####[facility] [address] [place], [place] [address]Cs. Jase Stinson Cholesterol in HDL [Mass/Vol] 54 mg/dL Normal 40-60 [facility] Comment on above: Performed By: #### T SH, CMP, LIPID, T7 ####[facility] [address] [place] [phone] Stinson Cholesterol in LDL [Mass/Vol] 88.2 mg/dL Normal [facility] Comment on above: Performed By: #### T SH, CMP, LIPID, T7 ####[facility] [address] [place], [place] [address]Xc. Jase Stinson Cholesterol.total/Ch olesterol in HDL [Mass ratio] 2.9 {ratio} Normal [facility] Comment on above: Performed By: #### T SH, CMP, LIPID, T7 ####[facility] [address] [place], [place] [address]Cf. Jase Stinson HDL NORMAL > or = 60 mg/dl - LO W CARDIOVASCULAR RISK <40 mg/dl - HIGH CARDIOVASCULAR RISK Normal [facility] Comment on above: Performed By: #### T SH, CMP, LIPID, T7 ####[facility] [address] [place] [phone]. Jase Stinson LDL CALC NORMAL SEE BELOW Normal [facility] Comment on above: Result Comment: <100 mg/dl OPTIMAL 100 - 129 mg/dl NEAR OR ABOVE OPTIMAL 130 - 159 mg/dl BORDERLINE HIGH 160 - 189 mg/dl HIGH >190 mg/dl VERY HIGH Performed By: #### T SH, CMP, LIPID, T7 ####[facility] [address] [place], [place] [address]HePedro Sitnson Triglyceride [Mass/Vol] 74 mg/dL Normal <=150 [facility] Comment on above: Performed By: #### T SH, CMP, LIPID, T7 ####[facility] [address] [place], [place] [address]PoPedro Stinson VLDL CALC 14.8 mg/dL Normal [facility] Comment on above: Performed By: #### T SH, CMP, LIPID, T7 ####[facility] [address] [place], [place] [address]UuDr. Jase Stinson PROF 14(COMP METB)on 022 Albumin [Mass/Vol] 3.5 g/dL Normal 3.4-5.0 [facility] Comment on above: Performed By: #### T SH, CMP, LIPID, T7 #### [facility] [address] [address] [address] Jase Stinson Albumin/Globulin [Mass ratio] 1.0 {ratio} Normal [facility] Comment on above: Performed By: #### T SH, CMP, LIPID, T7 #### [facility] [address] [address] [address] Jase Stinson ALP [Catalytic activity/Vol] 159 U/L Critically high 46-116 [facility] Comment on above: Performed By: #### T SH, CMP, LIPID, T7 #### [facility] [phone] Jase Stinson ALT [Catalytic activity/Vol] 35 U/L Normal 14-59 [facility] Comment on above: Performed By: #### T SH, CMP, LIPID, T7 #### [facility] [phone] Jase Stinson Anion gap [Moles/Vol] 11.3 mmol/L Normal [facility] Comment on above: Performed By: #### T SH, CMP, LIPID, T7 #### [facility] [address] [address] [address] Jase Stinson AST [Catalytic activity/Vol] 16 U/L Normal 15-37 [facility] Comment on above: Performed By: #### T SH, CMP, LIPID, T7 #### [facility] [address] [address] [address] Jase Stinson Bilirubin [Mass/Vol] 0.3 mg/dL Normal 0.2-1.0 [facility] Comment on above: Performed By: #### T SH, CMP, LIPID, T7 #### [facility] [address] [place] [address] Dr. Jase Stinson Calcium [Mass/Vol] 9.0 mg/dL Normal 8.5-10.1 [facility] Comment on above: Performed By: #### T SH, CMP, LIPID, T7 #### [facility] [address] [place] [address] Dr. Jase Stinson Chloride [Moles/Vol] 104 mmol/L Normal 98-107 [facility] Comment on above: Performed By: #### T SH, CMP, LIPID, T7 #### [facility] [address] [place] [address] Dr. Jase Stinson CO2 [Moles/Vol] 28.4 mmol/L Normal 21.0-32.0 [facility] Comment on above: Performed By: #### T SH, CMP, LIPID, T7 #### [facility] [address] [place] [address] Dr. Jase Stinson Creatinine [Mass/Vol] 0.77 mg/dL Normal 0.55-1.02 [facility] Comment on above: Performed By: #### T SH, CMP, LIPID, T7 #### [facility] [address] [place] [address] Dr. Jase Stinson EGFR-AF NEW ZEALANDER >60 Normal >=60 [facility] Comment on above: Performed By: #### T SH, CMP, LIPID, T7 #### [facility] [address] [address] [address] Jase Stinson EGFR-NON AF NEW ZEALANDER >60 Normal >=60 [facility] Comment on above: Performed By: #### T SH, CMP, LIPID, T7 #### [facility] [address] [address] [address] Jase Stinson Globulin (S) [Mass/Vol] 3.6 g/dL Normal [facility] Comment on above: Performed By: #### T SH, CMP, LIPID, T7 #### [facility] [address] [address] [address] Jase Stinson Glucose [Mass/Vol] 104 mg/dL Normal 74-106 [facility] Comment on above: Performed By: #### T SH, CMP, LIPID, T7 #### [facility] [address] [address] [address] Jase Stinson Potassium [Moles/Vol] 3.7 mmol/L Normal 3.5-5.1 [facility] Comment on above: Performed By: #### T SH, CMP, LIPID, T7 #### [facility] [address] [address] Dr. Jase Stinson Protein [Mass/Vol] 7.1 g/dL Normal 6.4-8.2 [facility] Comment on above: Performed By: #### T SH, CMP, LIPID, T7 #### [facility] [address] [address] [address] Jase Stinson Sodium [Moles/Vol] 140 mmol/L Normal 136-145 [facility] Comment on above: Performed By: #### T SH, CMP, LIPID, T7 #### [facility] [address] [address] [address] Jase Stinson Urea nitrogen [Mass/Vol] 7.0 mg/dL Normal 7.0-18.0 [facility] Comment on above: Performed By: #### T SH, CMP, LIPID, T7 #### [facility] [address] [address] [address] Jase Stinson Urea nitrogen/Creatinine [Mass ratio] 9.1 mg/mg Normal [facility] Comment on above: Performed By: #### T SH, CMP, LIPID, T7 #### [facility] [address] [place] [address] Dr. Jase Stinson TSHon 09-22-2021 TSH 0.775 uIU/mL Normal 0.358-3.740 [facility] Comment on above: Performed By: #### T SH, CMP, LIPID, T7 ####[facility] [address] [address]Dr. Jase Stinson UA RANDOM W/MICROSCOPICon BACTERIA NONE SEEN Normal NONE SEEN [facility] Comment on above: Performed By: #### U AMIC #### [facility] [address] [place] [address] Dr. Jase Stisnon Bilirubin Ql (U) Negative Normal NEGATIVE [facility] Comment on above: Performed By: #### U AMIC #### [facility] [address] [place] [address] Dr. Jase Stinson CAST NONE SEEN Normal NONE SEEN [facility] Comment on above: Performed By: #### U AMIC #### [facility] [address] [place] [address] Dr. Jase Stinson Clarity (U) CLEAR Normal CLEAR [facility] Comment on above: Performed By: #### U AMIC #### [facility] [address] [place] [address] Dr. Jase Stinson Color (U) LT. YELLOW Normal YELLOW [facility] Comment on above: Performed By: #### U AMIC #### [facility] [address] [place] [address] Dr. Jase Stinson Crystals LM Nom (Urine sed) NONE SEEN Normal NONE SEEN [facility] Comment on above: Performed By: #### U AMIC #### [facility] [address] [place] [address] Dr. Jase Stinson Epithelial cells LM Ql (Urine sed) NONE SEEN Normal NONE SEEN /RARE [facility] Comment on above: Performed By: #### U AMIC #### [facility] [address] [address] [address] Jase Stinson Glucose Ql (U) Negative Normal NEGATIVE [facility] Comment on above: Performed By: #### U AMIC #### [facility] [address] [address] [address] Jase Stinson Hemoglobin Ql (U) Negative Normal NEGATIVE [facility] Comment on above: Performed By: #### U AMIC #### [facility] [address] [address] [address] Jase Stinson Ketones Ql (U) Negative Normal NEGATIVE [facility] Comment on above: Performed By: #### U AMIC #### [facility] [address] [address] [address] Jase Stinson LEUKOCYTES Negative Normal NEGATIVE [facility] Comment on above: Performed By: #### U AMIC #### [facility] [address] [place] [address] Dr. Jase Stinson MUCOUS NONE SEEN Normal NONE SEEN [facility] Comment on above: Performed By: #### U AMIC #### [facility] [address] [address] [address] Jase Stinson Nitrite Ql (U) Negative Normal NEGATIVE [facility] Comment on above: Performed By: #### U AMIC #### [facility] [address] [place] [address] Dr. Jase Stinson pH (U) 7.0 [pH] Normal 5-9 [facility] Comment on above: Performed By: #### U AMIC #### [facility] [address] [place] [address] Dr. Jase Stinson RBC NONE SEEN Abnormal 0-2 [facility] Comment on above: Performed By: #### U AMIC #### [facility] [address] [place] [address] Dr. Jase Stinson SPEC GRAVITY <=1.005 Abnormal 1.005-<=1.025 [facility] Comment on above: Performed By: #### U AMIC #### [facility] [address] [place] [address] Dr. Jase Stinson UA PROTEIN Negative Normal NEGATIVE/ TRACE [facility] Comment on above: Performed By: #### U AMIC #### [facility] [address] [place] [address] Dr. Jase Stinson Urobilinogen Qn (U) 0.2 {Sanchez'U}/dL Normal 0.2 - 1. 0 [facility] Comment on above: Performed By: #### U AMIC #### [facility] [address] [place] [address] Dr. Jase Stinson WBC NONE SEEN Normal NONE SEEN [facility] Comment on above: Performed By: #### U AMIC #### [facility] [address] [place] [address] Dr. Jase Stinson XR CHEST 2 Von [...] CHERELLE COTTO Date: 2021-03-09 11:45 Normal [facility] CULTURE THROATon 02-23-2021 CULTURE THROAT Culture Observations : NORMAL RESPIRATORY LINDY. Normal [facility] Comment on above: Performed By: #### S SCRN, THRTCX #### [facility] [address] [place] [address] Dr. Jase Stinson Covid-19 PCR (CVDTB)on 01-27 SARS-CoV-2 (COVID-19) RNA VITO+probe Ql (Unsp spec) Not detected Normal NOT DETECTED [facility] Comment on above: Result Comment: This test is not yet approved or cleared by the [place] FDA. When there are no FDA-approved or cleared tests available, and other criteria are met, FDA can make tests available under an emergency access mechanism called an Emergency Use Authorization (EUA). The EUA for this test is supported by the Gr[employer] of Health and Human Service's (HHS's) declaration [...] with SARS-CoV-2. Performed By: #### C VDTBH ####[facility] [address] [place], [place] [address]UsDr. Jase Stinson STREPT SCREENon 02-23-2021 STREP SCREEN A Negative Normal NEGATIVE [facility] Comment on above: Performed By: #### S SCRN, THRTCX #### [facility] [address], [place] [address] Dr. Jase Stinson Vital Signs Date Time Vital Sign Value Performing Clinician Faci lity 12-21-2021 09:23-0400 Diastolic blood pressure 80 mm[Hg] [employer]C Annmarie Adkins Work Phone: [facility] 12-21-2021 09:23-0400 Heart rate 80 /min [employer]C Annmarie Adkins Work Phone: [facility] 12-21-2021 09:23-0400 Respiratory rate 16 /min [employer]ER-Ashley Adkins Work Phone: [facility] 12-21-2021 09:23-0400 SaO2% (BldA) [Mass fraction] 98 % [employer] Annmarie Adkins Work Phone: [facility] 12-21-2021 09:23-0400 Systolic blood pressure 123 mm[Hg] [employer]INE [employer]C Annmarie Adkins Work Phone: [facility] 12-21-2021 07:31-0400 Body height 167.64 cm [employer]C Annmarie Adkins Work Phone: [facility] 12-21-2021 07:31-0400 Body temperature 98.1 [degF] [employer]INE [employer]C Annmarie Lucille Work Phone: [facility] 12-21-2021 07:31-0400 Body weight 95.25 kg [employer]C Annmarie Lucille Work Phone: [facility] Encounters Encounter Date Encounter Type Care Provider Facility Start: 12-21-2021 End: 12-21-2021 ambulatory Darvin Motley Facility:[facility] Start: 12-21-2021 End: 12-21-2021 Admission to same day surgery center [employer] Annmarie Lucille Work Phone: [facility] Start: 12-21-2021 End: 12-21-2021 ambulatory [employer]C Annmarie Cande Luc[place] Work Phone: [facility] Work Phone: Start: 12-19-2021 End: 12-19-2021 ambulatory Darvin Motley Facility:[facility] Start: 12-19-2021 End: 12-19-2021 ambulatory [employer]C Annmarie Cande [place] Work Phone: [facility] Work Phone: Start: 12-19-2021 End: 12-19-2021 Patient encounter procedure [employer]-C Annmarie Lucille Work Phone: [facility] Start: 12-09-2021 End: 12-10-2021 ambulatory ANNMARIE [...] Procedure Detail Performing Clinician Start: 12-21-2021 Esophagogastroduodenoscopy [employer] Annmarie Adkins Work Phone: Plan of Treatment Date Care Activity Detail Author Start: 12-21-2021 [facility] Patient Education Esophageal Dilation [facility] Work Phone: Payers Date Payer Category Payer Self-pay 1975 Unknown [id number] 2.16.84 [id number] 1975 Unknown [id number] 2.16.84 [id number] 1975 Unknown [id number] 2.16.84 0.1.199087.3.579.2.593 1973 Unknown [id number] 2.16.84 [id number] 1973 Unknown [id number] 2.16.84 0.1.628355.3.579.2.593 1973 Unknown [id number] 2.16.84 0.1.711204.3.579.2.593 1973 Unknown [id number] .16.84 0.1.061846.3.579.2.593 1973 Unknown [id number] 2.16.84 0.1.364635.3.579.2.593 1973 Unknown [id number] 2.16.84 0.1.144859.3.579.2.593 1973 Unknown [id number] 2.16.84 0.1.479233.3.579.2.593 1973 Unknown [id number] 2.16.84 0.1.934121.3.579.2.593 1973 Unknown [id number] 2.16.84 [id number] 1961 Medicaid [id number] Unknown [id number] 2.16.8 40.1.150216.3.579.2.531 Unknown [id number] 2.16.8 [id number] Social History Date Type Detail Facility Tobacco smoking stat [facility] Unknown if ever smoked [facility] Work Phone: Start: 1975 Sex Assigned At Female F [facility] Start: [facility]-21-2021 [facility] Goals Date Patient Goal Desired Activity /State Procedure note 12-21-2021 Note Date & Type Note Facility 12-21-2021 Procedure note [facility] Evaluation note Note Date & Type Note Facility Evaluation note No assessment information availa ble [facility] Work Phone: History and physical note Note Date & Type Note Facility History and physical note Note Date/Time December 21, 2021 8:43am [facility] [address] [place] [address] Gastroenterology H&P Signed Patient: Rula Tabares MR#: [id number] : 1975 Acct:[id number] Age/Sex: 46 / F Adm Date: 2 Loc: Room: Type: [facility] Attending Dr: Darvin Motley MD Copies [...] <Electronically signed by Darvin Motley MD> 12/21/21842 [facility] Work Phone: Hospital Discharge instructions Note Date [...] NOT operate machinery such as power tools, [employer] mowers, snow blowers, sewing machines, etc. for [...] Follow up with PCP. - Office number [phone]. [facility] Work Phone: Chief Complaint and Reason for [...] DATE CREATED AUTHOR AUTHOR'S BENJI BANKS 12/28/2021 [facility] FOR RECORDS PERTAINING TO PATIENTS WHO ARE [...] BE BASED ON THE PRIMARY CLINICAL RECORDS. [employer] provides no warranty or guarantee of the accuracy or completeness of information in this document.
[2024-06-09 09:19] LABS: Alanine Aminotransferase 30 U/L (14-59); Albumin Level 3.5 g/dL (3.4-5.0); Alkaline Phosphatase 154 U/L (46-116); Anion Gap 11.2; Aspartate Amino Transferase 17 U/L (15-37); BUN Creatinine Ratio 10.4; Bilirubin Total 0.3 mg/dL (0.2-1.0); Calcium 9.1 mg/dL (8.5-10.1); Carbon Dioxide 29.5 mmol/L (21.0-32.0); Chloride 105 mmol/L (98-107); Estimated GFR (African America >60 (>=60 mL/min/1.73m^2); Estimated GFR (Non-African Ame >60 (>=60 mL/min/1.73m^2); Globulin 3.5 g/dL; Glucose 99 mg/dL (74-106); Potassium 4.7 mmol/L (3.5-5.1); Sodium 141 mmol/L (136-145)
== END 2024-06-09 08:27 | disposition home or self-care (01) ==
LOC: LAB 08:28
PROVIDERS: PCP Nurse Practitioner Family; Visit Provider Nurse Practitioner Family
DX: R74.8 Abnormal levels of other serum enzymes (principal)
CPT/HCPCS: 36415; 80053

== ENCOUNTER 2025-01-09 08:09 | Outpatient (OUT) | payer OTHER, SELFPAY ==
--- OUTSIDE RECORDS SUMMARY | 2025-01-08 11:00 | XMS_ITS ---
Author Organization The [facility] in [place] Address [address] [place] [address] Care Team Providers Care Supervisor Costuming Name Role Phone Annmarie Stein Primary Care Provider Allergies Allergen (clinical drug ingredient) Drug/Non Drug Allergy documented on EMR Reaction Allergy Type Onset Date Status Shellfish (FN) Shellfish-derived Products nausea and vomit ing Drug Allergy Active REASON FOR VISIT Presents to office with daughter for c/o ongoing right knee pain Medications Medication SIG (Take, Route, Frequency, Duration) Notes Start Date End Date Status tiZANidine HCl 4 MG TAKE 1 TABLET BY MARY ALICE TH EVERY DAY NEEDED AT BEDTIME; Duration: 90 days ActivebuPROPion HCl ER (XL) 150 MGTAKE 1 TABLET BY MOUTH EVERY DAY; Duration: 90 ActiveNaproxen 500 MG1 tablet with food or milk as needed Orally every 12 hrs; Duration: 30 daysActiveOmeprazole 40 MGTAKE 1 CAPSULE BY MOUTH EVERY DAY; Duration: 90 daysActive Social History Tobacco Use: Social History Observation Description Date Details (start date - stop date) Current Smoker NA - NA Tobacco Use/Smoking Question Answer Notes Patient is a current every day smoker AUDIT-C (Standard) Question Answer Notes Did you have a drink containing alcohol in the p ast year? No [id number] Vital Signs Weight 224.6 lbs 01/08/2025 Height 66 in 01/08/2025 Blood pressure systolic 146 mm Hg 01/09/20 25 Blood pressure diastolic 80 mm Hg 025 BMI 36.25 kg/m2 01/08/2025 Encounters Encounter Location Date Provider Diagnosis [facility] [address] [place] [address] 01/08/2025 Annmarie Stein Right knee pain M25.561 Assessments Encounter Date Diagnosis (ICD Code) Assessment Notes Treatment Notes Treatment Clinical Notes Section Notes 01/08/2025 Right knee pain (ICD-10 - M25.56 1) fu ortho? Plan Of Treatment Treatment Notes Assessment Notes Right knee pain fu ortho? Pending Test Test Name Order Date XR KNEE RT 3V 01/08/2025 Next Appt Details Follow Up: prn, Reason: Progress Notes * Rula PLATT RDOB:1975 (49 yo F)Acc No.[id number]:01/08/2025 UNLOCKED PROGRESS NOTE Progress Note Patient: Rula OTT :?Annmarie Stein ([facility]), CNPDOB:1975 ???Age:49 Y???Sex:FemaleDate:01/08/2025Phone:[phone]:[id number] In:02:52 PM ESTCheck Out:03:50 PM EST Subjective: * Chief Complaints: * 1 . Presents to office with daughter for c/o ongoing right knee pain. * HPI: ???General:? right knee pain? worse with bending- only happens when bends it better with straightening burning and numbness front lateral aspect down into lockett no injury. * ROS: ???General/Constitutional:?Fever?denies.?Headache?denies.?Weight loss denies.?Ophthalmologic:?Discharge?denies.?Eye Pain?denies.?Itching and redness?denies.?ENT:?Nasal discharge?denies.?Nasal congestion?denies. Sore throat?denies.?Cardiovascular:?Chest tightness/ heavy pressure?denies.?Rapid heart rate?denies.?Swelling of extremities?denies.?Chest pain?denies.?Respiratory:?Productive cough?denies.?Chest pain?denies.?Cough?denies.?Shortness of breath?denies.?Wheezing?denies.?Gastrointestinal:?Abdominal pain?denies.?Constipation?denies.?Decreased appetite?denies.?Diarrhea?denies.?Nausea?denies.?Vomiting denies.?Genitourinary:?Urinary incontinence?denies.?Painful urination?denies.?Musculoskeletal:?Patient complaining of?right knee pain only with bending. Back pain?denies.?Neck pain?denies.?Muscle aches?denies.?Skin:?Rash?denies.?Skin lesion(s)?denies.? * Medical History: E sophageal spasm, Gastro-esophageal reflux disease, Food sticks on swallowing, Over weight, Chronic venous insufficiency, Left flank pain, Swelling of both lower extremities, H/O: hysterectomy, Anxiety, Insomnia, Arthritis, Current smoker. * Surgical History: C -Section , Hysterectomy , Ablation veins in legs , Ablation to Uterus . * Hospitalization/Major Diagno stic Procedure: s marline . * Family History: F ather: alive, liver disease, diagnosed with Hypertension, Kidney Disease. M other: , COPD- passed at 62. B rother(s): alive, oldest brother passed from Kidney and liver failure, diagnosed with Diabetes. S ister(s): alive. 2 brother(s) , 1 sister(s) . 1 son(s) , 2 daughter(s) - healthy. . * Social History: ???Tobacco Use:?Electronic Cigarette use?Current user?Yes ?Tobacco Use/Smoking?Patient is a?current every day smoker ???Drug/Alcohol:?AUDIT-C (Standard)?Did you have a drink containing alcohol in the past year??No ?Points?0 ?Interpretation?Negative * Medications: T aking buPROPion HCl ER (XL) 150 MG Tablet Extended Release 24 Hour TAKE 1 TABLET BY MOUTH EVERY DAY , Taking Naproxen 500 MG Tablet 1 tablet with food or milk as needed Orally every 12 hrs , Taking Omeprazole 40 MG Capsule Delayed Release TAKE 1 CAPSULE BY MOUTH EVERY DAY , Taking tiZANidine HCl 4 MG Tablet TAKE 1 TABLET BY MOUTH EVERY DAY NEEDED AT BEDTIME , Medication List reviewed and reconciled with the patient * Allergies: S hellfish-derived Products: nausea and vomiting. Objective: * Vitals: W t:224.6lbs, Ht: 66 in, BP:146/80mm Hg, BMI:36.25Index, Ht-cm: 167.64 cm, Wt-k.88 kg. * Examination: ???General Examinations: ?GENERAL APPEARANCE:?alert and oriented,?in no acute distress.?EYES:?conjunctiva normal, sclera non-icteric.?NOSE:?normal external appearance.?LUNGS:?clear to auscultation bilaterally.?CARDIO:?regular rate and rhythm, S1, S2 normal.?MUSCULOSKELETAL:?Gait and station normal.?SKIN:?warm and dry.? Assessment: * Assessment: 1.?Right knee pain - M25.561 (Primary)??? Plan: * Treatment: ?Imaging: XR KNEE RT 3V Notes: fu ortho??? * Preventive Medicine: ??Screenings/Counseling:?BMI ACTION PLAN?Above Normal BMI Follow-up?Dietary management education, guidance, and counseling See treatment section of progress note for complete details of management plan. ?TOBACCO ACTION PLAN?Patient counselled on the dangers of tobacco use and urged to quit.? 01/08/2025 . * Follow Up: p rn * * Electronic signature of Annmarie Stein NP, PATENT ATTORNEY.EXHIBITION [email or web address] on 01/09/2025 at 08:16 AM ESTSign off status: PendingVisit Status:?CHK (Check Out) * Provider: Connie Stein ([facility]) EXHIBITION SPECIALIST Date: 03/10/2024 Generated for Printing/Faxing/eTransmitting on:?01/09/2025 08:16 AM EST History and Physical Notes * HPI (History of Present Illness) CategorySub-CategoryDetailNotesCategory NotesGeneral right knee pain worse with bending- only happens when bends it better with straightening burning and numbness front lateral aspect down into lockett no injury Examination CategorySub-CategoryDetailNotesCategory NotesGeneral ExaminationsGENERAL APPEARANCE:alert and oriented, in no acute distressEYES:conjunctiva normal, sclera non-ictericEARS:NOSE:normal external appearanceTHROAT:CARDIO:regular rate and rhythm, S1, S2 normalLUNGS:clear to auscultation bilaterallyABDOMEN:SKIN: warm and dryBACK:MUSCULOSKELETAL:Gait and station normalLYMPH NODES:
--- NOTE | 2025-01-09 08:15 | XR_ITS ---
The [address] [address] Patient Name: MARK TABARES MRN: [id number] date: 1975 Sex: F Assigned Patient Location: [facility] Current Patient Location: [facility] Accession/Order Number: [id number] Exam Date: 01/09/2025 08:20 Report Date: 01/09/2025 08:57 At the request of: CHARMAINE ADKINS Procedure: XR knee RT 3V RIGHT KNEE - 3 views COMPARISON: None CLINICAL DATA: Right knee pain for the past few months laterally. No injury. AP, lateral and internal oblique views were obtained. There is no acute fracture or dislocation. No disproportionate joint space narrowing is seen. There is minor squaring off of the articular margins. There is a small amount of joint fluid. No soft tissue swelling is noted. XR/XR knee RT 3V IMPRESSION: MINIMAL DEGENERATIVE CHANGE. NO ACUTE BONY FINDINGS. Impression dictated by: Laly Flannery M.D. 01/09/2025 8:57 AM Dictation Location: [place] [address] Electronically authenticated by: [id number] Date: 01/09/2025 08:57
--- OUTSIDE RECORDS SUMMARY | 2025-01-09 08:16 | XMS_ITS | Patient Health Record ---
Author Organization [facility] in [place] Address [address] [place] [address] Care Team Providers Care Fagot Heater Name Role Phone Emil, Annmarie Primary Care Provider [phone] Allergies Allergen (clinical drug ingredient) Drug/Non Drug Allergy documented on EMR Reaction Allergy Type Onset Date Status Shellfish (FN) Shellfish-derived Products nausea and vomit ing Drug Allergy Active Results Component Value Reference Range Notes FREE T3 Reviewed date:05/08/2024 01:28:05 PM Interpretation: Performing Lab: Notes/Report: [facility] , Free T3 3.26 2.18-3.98 pg/mL Performing Lab:see noteML - [facility] LBIRON Reviewed date:05/08/2024 01:28:05 PM Interpretation: Performing Lab: Notes/Report: [facility] ,Iron86.050.0-170.0 ug/dLPerforming Lab:see noteML - [facility] LB LIPID PROFILE Reviewed date:05/08/2024 01:28:05 PM Interpretation: Performing Lab: Notes/Report: [facility] ,Irapyrpfhnhnz08<=150 mg/oKUbiwihxtahn399<=200 mg/dLHDL Adezutopfua3426-33 mg/dL > or =60 mg/dl - LOW CARDIOVASCULAR RISK <40 mg/dl - HIGH CARDIOVASCULAR RISK LDL Cholesterol Sboesvvqdo75.0 <100 mg/dl OPTIMAL 100-129 mg/dl NEAR OR ABOVE OPTIMAL 130-159 mg/dl BORDERLINE HIGH 160-189 mg/dl HIGH >190 mg/dl VERY HIGH VLDL CHOLESTEROL8.2Chol HDL Ratio2.1 3.3 - 4.4 LOW RISK 4.4 - 7.1 AVERAGE RISK 7.1 - 11.0 MODERATE RISK >11.0 HIGH RISK Performing Lab:see note - [facility] LBPROF 14(COMP METB) Reviewed date:05/08/2024 01:28:05 PM Interpretation: Performing Lab: Notes/Report: [facility] ,Adnhqy272262-315 mmol/LPotassium4.33.5-5.1 mmol/ABlclsbqt38308-464 mmol/LCarbon Lefvgiz34.421.0-32.0 mmol/LAnion Gap9.1Vatflnd23952-094 mg/dLBlood Urea Nitrogen 15.07.0-18.0 mg/dLCreatinine0.750.55-1.02 mg/dLEstimated GFR ( Yani>60 >=60 mL/min/1.73m 2Estimated GFR (Non- Patrizia>60>=60 mL/min/1.73m 2BUN Creatinine Ratio20.8Zufkeyy7.28.5-10.1 mg/dLBilirubin Total0.30.2-1.0 mg/dL Aspartate Amino Nvecagjjayh8644-83 U/LAlanine Nnrpvnuhxrihrgmv2490-09 U/L Alkaline Jblhyjkyuyw16739-563 U/LTotal Protein7.36.4-8.2 g/dLAlbumin Level3.7 3.4-5.0 g/dLGlobulin3.6Albumin Globulin Ratio1.0Performing Lab:see note - [facility] LBT4 Reviewed date:05/08/2024 01:28:05 PM Interpretation: Performing Lab: Notes/Report: [facility] ,T4 Thyroxine9.204.80-13.90 ug/dLPerforming Lab:see note - [facility] LBTSH Reviewed date:05/08/2024 01:28:05 PM Interpretation: Performing Lab: Notes/Report: [facility] ,Thyroid Stimulating Hormone1.0480.358-3.740 uIU/mLPerforming Lab:see note - [facility] LBINSULIN Reviewed date:05/09/2024 10:24:15 AM Interpretation: Performing Lab: Notes/Report: [facility] ,Lxcwwor33.42.6-24.9 uIU/mL Performed at: CB - [facility] [id number] Substitute Nurse: Tyson Martin PhD, Phone: [phone] Performing Lab:see note - [facility] LBGLYCOHEMOGLOBIN A1C Reviewed date:05/08/2024 01:28:05 PM Interpretation: Performing Lab: Notes/Report: [facility] ,Glycohemoglobin A1C5.74.5-6.2 % ADA RECOMMENDED LIMIT 4.0 - 6.0 ADA THERAPEUTIC TARGET < 7.0 ACTION SUGGESTED > 7.0 Estimated Average Arqsbud869Jxcautoyrw Lab:see noteML - [facility] LB CBC AUTO DIFF Reviewed date:05/08/2024 01:28:05 PM Interpretation: Performing Lab: Notes/Report: [facility] ,White Blood Count7.54.0-11.0 10 3/uLRed Blood Count4.814.20-5.40 10 6/uL Oonlikfhik64.112.0-16.0 g/oHIjatrjwqwn33.436.0-48.0 %Mean Corpuscular Fbkpno11.2 81.0-99.0 fLMean Corpuscular Iwjungnjsw03.326.7-34.0 pgMean Corpuscular HGB Conc 32.529.9-35.2 g/dLRed Cell Distribution Width13.011.0-15.0 %Platelet Ztjgi662 150-450 10 3/uLMean Platelet Volume8.99.5-13.5 fLNeutrophils Percent Auto58.8 43.0-75.0 %Lymphocytes Percent Auto29.920.5-60.0 %Monocytes Percent Auto5.61.7- 12.0 %Eosinophils Percent Auto4.40.9-7.0 %Basophils Percent Auto0.90.2-2.0 % Immature Granulocytes Pct Auto0.40.0-0.5 %Neutrophils Absolute Auto4.41.4-6.5 10 3/uLLymphocytes Absolute Auto2.21.2-3.8 10 3/uLMonocytes Absolute Auto0.40.3-0.8 10 3/uLEosinophils Absolute Auto0.30.0-0.7 10 3/uLBasophils Absolute Auto0.10.0- 0.1 10 3/uLImmature Granulocytes Abs Auto0.030.00-0.03 10 3/uLPerforming Lab:see noteML - [facility] LBPROF 14(COMP METB) Reviewed date:06/16/2024 02:53:02 PM Interpretation: Performing Lab: Notes/Report: [facility] ,Qjnzpz585894-206 mmol/LPotassium4.73.5-5.1 mmol/ARhmdxlyu05906-262 mmol/LCarbon Fuhagts27.521.0-32.0 mmol/LAnion Gap11.3Bhmjglp6796-087 mg/dLBlood Urea Nitrogen 8.07.0-18.0 mg/dLCreatinine0.770.55-1.02 mg/dLEstimated GFR ( Yani>60 >=60 mL/min/1.73m 2Estimated GFR (Non- Patrizia>60>=60 mL/min/1.73m 2BUN Creatinine Ratio10.0Qazyfmi3.18.5-10.1 mg/dLBilirubin Total0.30.2-1.0 mg/dL Aspartate Amino Igchcysypne5648-02 U/LAlanine Hcldoaiynjzyvydu9065-06 U/L Alkaline Uyctrvhdngu54261-348 U/LTotal Protein7.06.4-8.2 g/dLAlbumin Level3.5 3.4-5.0 g/dLGlobulin3.5Albumin Globulin Ratio1.0Performing Lab:see noteML - [facility] LBUS THYROID Reviewed date:05/20/2024 11:58:40 AM Interpretation: Performing Lab: Notes/Report: Source Facility: [place] [address] [place] [address] Ultrasound Report Signed Patient: RULA PLATT MR#: [id number] : 1975 Acct:[id number] Age/Sex: 49 / F ADM Date: 05/14/24 Loc: US Attending Dr: ANNMARIE STEIN Ordering Physician: ANNMARIE STEIN Date of Service: 05/14/24 Procedure(s): US thyroid Accession Number(s): [id number] cc: ANNMARIE STEIN [place] [address] Patient Name: RULA PLATT MRN: [id number] date: 1975 Sex: F Assigned Patient Location: US Current Patient Location: Accession/Order Number: [id number] Exam Date: 05/14/2024 11:29 Report Date: 05/14/2024 12:04 At the request of: ANNMARIE STEIN Procedure: US thyroid Thyroid ultrasound Reason for exam: Wellness examination. Family history of thyroid cancer. Comparison: none Technique: Grayscale and color Doppler images of the thyroid gland were obtained. Findings: The right lobe measures 4.7 x 2.1 x 1.6 cm. The left lobe measures 4.0 x 1.6 x 1.6 cm. The isthmus measures 4.4 mm. No hyperemia seen on color Doppler imaging. A hypoechoic nodule seen involving the mid aspect of the right lobe measuring 9 x 7 x 6 mm. A colloid cyst is seen involving the inferior pole of the right lobe measuring 7 x 6 x 4 mm. The left lobe demonstrates a hypoechoic nodule involving its mid aspect measuring 8 x 6 x 5 mm. An additional hypoechoic nodule seen involving the mid aspect of the left lobe measuring 10 x 5 x 3 mm. No nodules are noted involving the isthmus. US/US thyroid Impression: Multinodular thyroid gland, largest nodule measuring 10 x 5 x 3 mm involving the mid aspect of the left lobe. Repeat ultrasound in one year is suggested. Impression dictated by: Yves Rincon Jr., D.O.05/14/2024 12:04 PM Dictation Location: [place] [address] Electronically authenticated by: [id number] Y Date: 05/14/2024 12:04 Dictated By: Yves Rincon M.D. Signed By: 05/14/24 1207 DD/ 1204 TD/TT: Locator Specialist:VITAMIN D 25 [place] Reviewed date:05/08/2024 01:28:05 PM Interpretation: Performing Lab: Notes/Report: [facility] ,Vitamin D39.5 <20 ng/mL Vit D deficient 20-<30 ng/mL Vit D insufficient 30-100 ng/mL Vit D sufficient >100 ng/mL Potential Toxicity Performing Lab:see noteML - [facility] LB Reason For Referral No Information Medications Medication SIG (Take, Route, Frequency, Duration) [...] alcohol in the p ast year? No Nmvlfy3HmzphcfoalrsvqUhkfbhuk Problems Problem Type SNOMED Code ICD Code Onset Dates Problem Status W/U Status Risk Notes Problem Amnesia (59851822) Other amnesia (R41.3) ActiveconfirmedProblemAnxiety (46970124)Anxiety (F41.9)ActiveconfirmedProblem Arthritis (9384406)Arthritis (M19.90)ActiveconfirmedProblemH/O: hysterectomy (036733367)H/O: hysterectomy (Z90.710)ActiveconfirmedProblemInsomnia (642362328) Insomnia (G47.00)ActiveconfirmedProblemCurrent smoker (96696159)Current smoker (F17.200)ActiveconfirmedProblemOverweight (186639301)Over weight (E66.3)Active confirmedProblemLeft flank pain (824338804)Left flank pain (R10.9)Active confirmedProblemEsophageal spasm (92562938)Esophageal spasm (K22.4)Active confirmedProblemDisorder of soft tissue (60013212)Swelling of both lower extremities (M79.89)ActiveconfirmedProblemChronic venous insufficiency (43009369)Chronic venous insufficiency (I87.2)ActiveconfirmedProblemGastro- esophageal reflux disease (319774884)Gastro-esophageal reflux disease (K21.9) ActiveconfirmedProblemFood sticks on swallowing (507142555)Food sticks on swallowing (R13.10)ActiveconfirmedProblemNon-toxic multinodular goiter (59929730)Multinodular thyroid (E04.2)ActiveconfirmedProblemObese class I (finding) (036080441580998)Class 1 obesity (E66.9)Activeconfirmed Vital Signs Blood pressure diastolic 80 mm Hg 01/08/2025 Zysmoo12 in01/08/2025lood pressure volpiiod283 mm Hg01/08/20259616Mrjgqe117.6 lbs 01/08/2025BMI36.25 kg/m201/08/2025 Encounters Encounter Location Date Provider Diagnosis [facility] [address] [place] [address] 03/31/2024 Annmarie Stein [facility] [place] [address] 04/09/2024Annmarie [facility] [place] [address]/[place] EmilElevated alkaline phosphatase level R74.8[facility] [place] [address]/Annmarie [facility] [place] [address]/[facility] [place] [address]/01/2025Annmarie Stein Wellness examination Z00.00 and Class 1 obesity E66.9[facility] [place] [address]/01/2025Annmarie SteinClass 1 obesity E66.9 and Wellness examination Z00.00[facility] [address] [place] [address]/Pamela DaciamerRight knee pain M25.561 and Lump R22.9[facility] [place] [address]/Pamela CramerRight knee pain M25.561 Assessments Encounter Date Diagnosis (ICD Code) Assessment Notes Treatment Notes Treatment Clinical Notes Section Notes 04/09/2024 Wellness examination (ICD-10 - Z 00.00) ROS done exam done labs ordered mammogram encouraged cologuard? 5Class 1 obesity (ICD-10 - E66.9) handouts given 30 g protein within 30 min waking up 05/07/2024lass 1 obesity (ICD-10 - E66.9) stop adipex not effective discussed diet 30 g protein within 30 min waking small portions, increase protein, eat dinner earlier, track calories water only fu 3m 05/07/2024Wellness examination (ICD-10 - Z00.00)11/20/2024Right knee pain (ICD- 10 - M25.561) give little more time discussed knee injection with Dr Gomez discussed xray 11/20/2024Lump (ICD-10 - R22.9) continue to monitor discussed ultrasound 01/08/2025Right knee pain (ICD-10 - M25.561)fu ortho?05/08/2024Elevated alkaline phosphatase level (ICD-10 - R74.8) Plan Of Treatment Pending Test Test Name Order Date CMP (COMPLETE METABOLIC PANEL) 3 HEMOGLOBIN A1C (GLYCO) 09/15/2022 HEMOGLOBIN A1C (GLYCO) 04/09/2024 HEMOGLOBIN A1C (GLYCO) 05/07/2024 IRON, TOTAL 05/07/2024 IRON, TOTAL 04/09/2024 IRON, TOTAL 09/15/2022 LIPID PANEL (CHOL/TRIG/HDL/LDL) 09/16/19 23 LIPID PANEL (CHOL/TRIG/HDL/LDL) 04/09/19 25 LIPID PANEL (CHOL/TRIG/HDL/LDL) 05/08/19 25 CBC WITH DIFF 04/09/2024 CBC WITH DIFF 09/15/2022 VITAMIN D, 25 LEVEL (TOTAL) 05/07/2024 VITAMIN D, 25 LEVEL (TOTAL) 09/15/2022 VITAMIN D, 25 LEVEL (TOTAL) 04/09/2024 US Thyroid 05/07/2024 XR Hip RT AP and Lat * 11/02/2022 Insulin Level 04/09/2024 Insulin Level 05/07/2024 Insulin Level 09/15/2022 CMP - Comprehensive Metabolic Panel 04/26 XR KNEE RT 3V 01/08/2025 THYROID PANEL (T4/TSH/FREE T3) 5 THYROID PANEL (T4/TSH/FREE T3) 5 THYROID PANEL (T4/TSH/FREE T3) 3 MM diagnostic mammo BI 03/13/2023 CMP (COMP MET [facility]) w/eGFR CKD-EPI 2024 CMP (COMP MET [facility]) w/eGFR CKD-EPI 2024 CBC WITH DIFF 05/07/2024 Insurance Providers Payer Name Payer Address Payer Phone Subscriber Number Group Number Insured Name Patient Relationship to Insured Coverage Start Date Coverage End Date [employer] [address] [place] [phone] [id number] Chandrika Platt - patient is the insured Medical (General) History Medical History History ICD Code Esophageal spasm K22.4 Gastro-esophageal reflux disease K21.9 Food sticks on swallowing R13.10 Over weight E66.3 Chronic venous insufficiency I87.2 Left flank pain R10.9 Swelling of both lower extremities M79.8 9 H/O: hysterectomy Z90.710 Anxiety F41.9 Insomnia G47.00 Arthritis M19.90 Current smoker F17.200 Surgical History Surgery Date(Month/Year) Ablation veins in legs HysterectomyC-SectionAblation to UterusHospitalization History Reason Date(Month/Year) surgery
== END 2025-01-09 08:10 | disposition home or self-care (01) ==
PROVIDERS: PCP Nurse Practitioner Family; Visit Provider Nurse Practitioner Family
DX: M25.561 Pain in right knee (principal)
CPT/HCPCS: 73562